=== PATIENT | male | born 1970 | race Caucasian/White ===

== ENCOUNTER 2020-04-02 22:40 | Emergency (ER) | payer OTHER ==
[~2020-04-02] VITALS: Ht 180.3 cm; Wt 86.2 kg
--- NOTE | 2020-04-02 23:43 | Emergency Department Note ---
History of Present Illnes History of Present Illness Chief Complaint: Eye, Ear, Nose, Throat, Dental History of Present Illness This is a 49 year old male PRESENTS TO ED WITH TOOTHACHE X1 DAY, PT HAS APPT AT DENTIST OFFICE ON FRIDAY . Historian: Patient Arrival Mode: Car Multi Media Specialist Required: No Onset (how long ago): day(s) (1) Location: TOOTH Quality: PAIN Radiation: Reports non-radiation Severity: moderate Onset quality: sudden Duration (how long): day(s) (1) Timing of current episode: constant Progression: unchanged Chronicity: new Context: Denies recent illness, Denies recent surgery, Denies trauma/injury Relieving factors: none Exacerbating factors: eating, other (HOT AND COLD FLUIDS) Associated symptoms: Reports denies other symptoms Treatments prior to arrival: none Past Medical/Family History Physician Review I have reviewed the patient's past medical and family history. Any updates have been documented here. Past Medical History Recent Fever: Yes Clinical Suspicion of Infectio: Yes New/Unexplained Change in Ment: No Other Medical History: PNEUMOTHORAX Other Surgery: R WRIST, LIPOMA REMOVED, L FOOT SX Social History Smoking Cessation: Never Smoker Alcohol Use: None Any Illegal Drug Use: No Other Last Tetanus: UTD Any Pre-Existing Lines (PICC,: No Review of Systems Review of Systems Constitutional: Reports no symptoms EENTM: Reports as per HPI Cardiovascular: Reports no symptoms Respiratory: Reports no symptoms Gastrointestinal: Reports no symptoms Genitourinary: Reports no symptoms Musculoskeletal: Reports no symptoms Integumentary: Reports no symptoms Neurological: Reports no symptoms Psychological: Reports no symptoms Endocrine: Reports no symptoms Hematological/Lymphatic: Reports no symptoms Physical Exam Related Data Allergies: Coded Allergies: No Known Allergies (Unverified , 08/14/14) Triage Vital Signs Vital Signs Date Time Temp Pulse Resp B/P (MAP) Pulse Ox O2 Delivery O2 Flow Rate FiO2 04/02/20 22:51 98.4 88 129/81 100 Room Air Vital signs reviewed: Yes Physical Exam CONSTITUTIONAL Constitutional: Present well-developed, Present well-nourished; Absent distressed HENT HENT: Present normocephalic, Present atraumatic, Present oropharynx clear/moist, Present nose normal, Present dental caries (LARGE DENTAL PAULETTE RIGHT LOWER INCISOR, NO SIGN OF INFECTION) HENT L/R: Present left ext ear normal, Present right ext ear normal EYES Eyes: Reports PERRL, Reports conjunctivae normal NECK Neck: Present ROM normal PULMONARY Pulmonary: Present effort normal, Present breath sounds normal CARDIOVASCULAR Cardiovascular: Present regular rhythm, Present heart sounds normal, Present capillary refill normal, Present normal rate GASTROINTESTINAL Abdominal: Present soft, Present nontender, Present bowel sounds normal GENITOURINARY Genitourinary: Present exam deferred SKIN Skin: Present warm, Present dry MUSCULOSKELETAL Musculoskeletal: Present ROM normal NEUROLOGICAL Neurological: Present alert, Present oriented x 3, Present no gross motor or sensory deficits PSYCHOLOGICAL Psychological: Present mood/affect normal, Present judgement normal Assessment & Plan Medical Decision Making MDM PT WITH DENTAL CARIES PRESCRIBED PEN VEE K 500 MG 1 PO Q 6 HOURS FOR 14 DAYS TRAMADOL 50 MG 1 PO Q 6 HOURS PRN PAIN DOLOBID 500 MG 1 PO Q 12 HOURS PRN PAIN PT TO FOLLOW UP WITH DENTIST Assessment & Plan Final Impression: (1) Pain, dental (2) Dental caries Depart Disposition: HOME, SELF-CARE Last Vital Signs Date Time Temp Pulse Resp B/P (MAP) Pulse Ox O2 Delivery O2 Flow Rate FiO2 04/02/20 22:51 98.4 88 129/81 100 Room Air JUAN HOLT MD Apr 02, 2020 23:43
--- OUTSIDE RECORDS SUMMARY | 2020-04-03 00:29 | XMS REPORT | Continuity of Care Document ---
Author Author KIERRA Ramos Organization [email or web address] Address Unknown Phone Unavailable Care Team Providers Care Emt I/85 Name Role Phone [employer] Unavailable Un available Problems Problem Status Onset Date Classification Date Reported Comments Source Discharge Diagnosis: Contusion of foot, left 06/22/2015 06/25/2015 [facility] Discharge Diagnosis: Left foot pain 06/22/2015 06/25/2015 [facility] POSS FX FOOT 2 DAYS AGO Active 06/19/2015 [facility] LEFT TOE INJURY Active 06/16/2015 [facility] Discharge Diagnosis: Acid reflux 05/24/2015 05/27/2015 [facility] CHEST PAIN Active 05/23/2015 [facility] Discharge Diagnosis: Colitis 11/24/2014 11/27/2014 [facility] ABDOMINAL PAIN Active 11/22/2014 [facility] CP Active [facility] ABDOMINAL PAIN, DIVERTICULITIS Active 11/04/2014 [facility] Gastroesophageal reflux disease (disorder) Resolved Problem 06/25/2015 [facility] Fracture of foot (disorder) Re solved Problem [facility] Spontaneous pneumothorax (disorder) Resolved Problem [facility] ABDMNAL PAIN UNSPCF SITE Active [facility] CHEST PAIN NOS Active [facility] Medications Medication Details Route Status Patient Instructions Ordering Provider Order Date Source tramadol hydrochloride 50 MG Oral Tablet 50 mg, Route: PO, Drug form: TAB, ONCE, Dosing Weight 86.364, kg, Priority: STAT, Start date: 06/22/15 5:09:00, Stop date: 06/22/15 5:09:00 Inactive 06/22/2015 [facility] tramadol hydrochloride 50 MG Oral Tablet 50 mg = 1 tab, PO, BID, X 15 day, # 10 tab, 0 Refill(s) Active 06/22/2015 [facility] Ibuprofen Notes: (Same as: Mot rin) "Do Not Crush" Give with food. Inactive 06/22/2015 [facility] Ketorolac 60 mg, Route: IM, Dr ug form: INJ, ONCE, Dosing Weight 86.364, kg, Priority: STAT, Start date: 06/16/15 20:26:00, Stop date: 06/16/15 20:26:00 Inactive 06/17/2015 [facility] Esomeprazole 40 MG Enteric Coated Capsule [Nexium] 40 mg = 1 cap, PO, Daily, # 30 cap, 0 Refill(s) Active 05/24/2015 [facility] Famotidine 20 MG Oral Tablet [Pepcid] 20 mg = 1 tab, PO, BID, # 60 tab, 0 Refill(s) Active 05/24/2015 [facility] GI cocktail Notes: [place] = antacid with simethicone 22.5 mL - lidocaine viscous 7.5 mL Inactive 05/24/2015 [facility] prochlorperazine 10 mg oral tablet 10 mg = 1 tab, PO, Q6H, PRN Nausea & Vomiting, X 3 day, # 10 tab, 0 Refill(s) Active 11/24/2014 [facility] promethazine 25 mg rectal suppository 25 mg = 1 supp, AL, Q6H, PRN Nausea & Vomiting, X 1 day, # 4 supp, 0 Refill(s) No Longer Active 11/24/2014 [facility] Metronidazole 500 MG Oral Tablet [Flagyl] 500 mg = 1 tab, PO, Q8H, X 10 day, # 30 tab, 0 Refill(s) Active 11/24/2014 [facility] Levofloxacin 500 MG Oral Tablet [Levaquin] 500 mg = 1 tab, PO, Q24H, X 9 day, # 9 tab, 0 Refill(s) Active 11/24/2014 [facility] Acetaminophen 325 MG / Hydrocodone Tripp trate 5 MG Oral Tablet [[place] 5/325] 1-2 tab, PO, Q6H, PRN Pain, X 5 day, # 2 0 tab, 0 Refill(s) Active 11/24/2014 [facility] Potassium Chloride 1.33 MEQ/ML Oral Solution 40 mEq, 15 mL, Route: PO, Drug form: LIQ, ONCE, Dosing Weight 86.364, kg, Priority: STAT, Start date: 11/24/14 2:51:00, Stop date: 11/24/14 2:51:00 Inactive 11/24/2014 [facility] Levaquin 750 mg, Route: PO, Dr ug form: TAB, ONCE, Dosing Weight 86.364, kg, Start date: 11/24/14 2:18:00, Stop date: 11/24/14 2:18:00 Inactive 11/24/2014 [facility] Flagyl 500 mg, Route: IVPB, ON CE, Dosing Weight 86.364, kg, Priority: STAT, Start date: 11/24/14 2:18:00, Stop date: 11/24/14 2:18:00 Inactive 11/24/2014 [facility] Ketorolac 30 mg, Route: IVP, D rug form: INJ, ONCE, Dosing Weight 86.364, kg, Priority: STAT, Start date: 11/24/14 2:18:00, Stop date: 11/24/14 2:18:00 Inactiv e 11/24/2014 [facility] Zofran ODT 4 mg, Route: PO, Dr ug form: TABDIS, ONCE, Dosing Weight 86.364, kg, Priority: STAT, Start date: 11/24/14 2:18:00, Stop date: 11/24/14 2:18:00 Inactiv e 11/24/2014 [facility] Saline Flush 0.9% Notes: Same as: BD Posiflush Sterile No Longer Active 11/24/2014 [facility] Nexium 20 mg, Route: PO, Drug form: ECCAP, BID, Dosing Weight 88.818, kg, Start date: 11/12/14 9:00:00, Duration: 30 day, Stop date: 12/11/14 17:00:00 No Longer Active 11/12/2014 [facility] Protonix Notes: Tablet should not be chewed or crushed. (Same as: Protonix) No Longer Active 11/12/2014 [facility] tramadol hydrochloride 50 MG Oral Tablet 50 mg = 1 tab, PO, Q6H, PRN Pain Score 1-3, X 7 day, # 28 tab, 0 Refill(s) Active 11/11/2014 [facility] Ketorolac 4 days MEDICA TION WASTE Product Size: 30 mg Product Wasted: ___ mg Inactive 11/11/2014 [facility] Tramadol Notes: Not to exceed 400mg/day. (Same As: Ultram) Inactive 11/11/2014 [facility] tramadol hydrochloride 50 MG Oral Tablet Notes: Not to exceed 400mg/day. (Same As: Ultram) Inactive 11/11/2014 [facility] Acetaminophen 325 MG / Hydrocodone Tripp trate 5 MG Oral Tablet [[place] 5/325] 1 tab, Route: PO, Dosing Weight 88.818, kg, ONCE, Start date: 11/11/14 10:55:00, Stop date: 11/11/14 10:55:00 Inactive 11/11/2014 [facility] Acetaminophen Notes: Do not ex ceed 4 gm/day. (Same as: Tylenol) Inactive 11/11/2014 [facility] Morphine Notes: (Same as:MORPh ine Sulfate) Inactive 11/11/2014 [facility] Fentanyl 50 microgram, Route: IVP, ONCE, Dosing Weight 88.818, kg, Priority: STAT, Start date: 11/11/14 6:11:00, Stop date: 11/11/14 6:11:00 Inactive 11/11/2014 [facility] Saline Flush 0.9% Notes: (Same as: BD Posiflush) Inactive 11/11/2014 [facility] Dilaudid 1 mg, Route: IVP, ONC E, Dosing Weight 88.636, kg, Priority: STAT, Start date: 11/05/14 11:41:00, Stop date: 11/05/14 11:41:00 Inactive 11/05/2014 [facility] Ciprofloxacin 2 MG/ML Injectable Solution [Cipro] Notes: Do not refrigerate No Longer Active 11/05/2014 [facility] Flagyl Notes: (Same as: Flagyl ) Avoid alcohol. No Longer Active 11/05/2014 [facility] Protonix Notes: For IV push re constitute with 10 ml 0.9% sodium chloride and push over 2 minutes. (Same as: Protonix) No Longer Active 11/05/2014 [facility] Hydromorphone 1.5 mg, 1.5 mL, Route: IV, Drug form: INJ, Q4H, Dosing Weight 88.636, kg, PRN Pain Score 7-10, Start date: 11/04/14 22:38:00, Stop date: 12/04/14 22:37:00 No Longer Active 11/05/2014 [facility] Thiamine Notes: (Same As: Beba min B1) No Longer Active 11/05/2014 [facility] Zofran Notes: (Same as: Zofran ) MEDICATION WASTE Product Size: 4 mg Product Wasted: ___ mg No Longer Active 11/05/2014 [facility] Morphine Notes: (Same as:MORPh ine Sulfate) No Longer Active 11/05/2014 [facility] D5NS 1,000 mL 1,000 mL, Rate: 100 ml/hr, Infuse over: 10 hr, Route: IV, Dosing Weight 88.636 kg, Total Volume: 1,000, Start date: 11/04/14 20:27:00, Duration: 30 day, Stop date: 12/04/14 20:26:00 No Longer Active 11/05/2014 [facility] Esomeprazole 20 MG Enteric Coated Capsule [Nexium] 20 mg = 1 cap, PO, BID, # 90 cap, 0 Refill(s) On Hold 11/05/2014 [facility] Allergies, Adverse Reactions, Alerts No Known Medication Allergies Immunizations No Data Provided for This Section Results Order Name Results Value Reference Range Date Interpretation Comments Source CARDIAC ENZYMES CK MB Index 1.2 0.0 - 2.5 05/24/2015 [facility] CARDIAC ENZYMES Troponin-I <0.02 0.00 - 0.40 05/24/2015 [facility] CARDIAC ENZYMES CK MB 1.0 0.5 - 3.6 05/24/2015 [facility] CARDIAC ENZYMES Total CK 85 12 - 191 05/24/2015 [facility] CHEM PANEL eGFR 80 05/24/2015 Result Comment: The eGFR is calculated using the CKD-EPI formula. In most young, healthy individuals the eGFR will be >90 mL/min/1.73m2. The eGFR declines with age. An eGFR of 60-89 may be normal in some populations, particularly the elderly, for whom the CKD-EPI formula has not been extensively validated. Use of the eGFR is not recommended in the following populations:

Individuals with unstable creatinine concentrations, including patients and those with serious co-morbid conditions.

Patients with extremes in muscle mass or diet.

The data above are obtained from the National Kidney Disease Education Program (NKDEP) which additionally recommends that when the eGFR is used in patients with extremes of body mass index for purposes of drug dosing, the eGFR should be multiplied by the estimated BMI. [place] CHEM PANEL AGAP 11.7 10.0 - 20.0 05/24/2015 [place] CHEM PANEL Bili Total 0.3 0.2 - 1.3 05/24/2015 [place] [facility] CHEM PANEL AST 46 0 - 37 05/24/2015 [place] CHEM PANEL A/G Ratio 0.9 0.7 - 1.6 05/24/2015 [place] [facility] CHEM PANEL Globulin 4.0 2.0 - 4.0 05/24/2015 [place] CHEM PANEL B/C Ratio 9 6 - 25 05/24/2015 [place] CHEM PANEL Alk Phos 145 39 - 136 05/24/2015 [place] CHEM PANEL ALT 93 0 - 65 05/24/2015 [place] [facility] CHEM PANEL Total Protein 7.6 6.4 - 8.4 05/24/2015 [place] CHEM PANEL Albumin Lvl 3.6 3.5 - 5.0 05/24/2015 [place] CHEM PANEL Calcium Lvl 8.7 8.5 - 10.5 05/24/2015 [place] CHEM PANEL CO2 26 24 - 32 05/24/2015 [place] CHEM PANEL Chloride Lvl 105 95 - 109 05/24/2015 [place] CHEM PANEL Creatinine Lvl 1.1 0.5 - 1.4 05/24/2015 [place] CHEM PANEL BUN 10 7 - 22 05/24/2015 [place] CHEM PANEL Sodium Lvl 138 135 - 145 05/24/2015 [place] CHEM PANEL Glucose Lvl 97 70 - 99 05/24/2015 [place] CHEM PANEL Potassium Lvl 4.7 3.5 - 5.1 05/24/2015 [place] HEMATOLOGY RBC 4.46 4.70 - 6.10 05/24/2015 [facility] HEMATOLOGY WBC 7.7 3.7 - 10.4 05/24/2015 [facility] HEMATOLOGY MCH 30.3 27.0 - 31.0 05/24/2015 [facility] HEMATOLOGY Hct 40.6 42.0 - 54.0 05/24/2015 [facility] HEMATOLOGY Hgb 13.5 14.0 - 18.0 05/24/2015 [facility] HEMATOLOGY Platelet 367 133 - 450 05/24/2015 [facility] HEMATOLOGY RDW 17.8 11.5 - 14.5 05/24/2015 [facility] HEMATOLOGY MCV 91.1 80.0 - 94.0 05/24/2015 [facility] HEMATOLOGY MCHC 33.3 32.0 - 36.0 05/24/2015 [facility] HEMATOLOGY MPV 8.4 7.4 - 10.4 05/24/2015 [facility] URINE AND STOOL UA Sq Epi None Seen 11/24/2014 [facility] URINE AND STOOL UA Urobilinogen <=1.0 mg/dL 0.1 - 1.0 11/24/2014 [facility] URINE AND STOOL UA Spec Grav >=1.050 *ABN* (11/24/14 1:50 AM) <=1.030 11/24/2014 [place] URINE AND STOOL UA Leuk Est Negative (11/24/14 1:50 AM) Negative 11/24/2014 [place] URINE AND STOOL UA Nitrite Negative (11/24/14 1:50 AM) Negative 11/24/2014 [facility] URINE AND STOOL UA Blood Negative (11/24/14 1:50 AM) Negative 11/24/2014 [facility] URINE AND STOOL UA Bili Negative *NA* (11/24/14 1:50 AM) Negative 11/24/2014 [place] URINE AND STOOL UA Ketones Negative mg/dL Negative mg/dL 11/24/2014 [facility] URINE AND STOOL UA Glucose Negative mg/dL Negative mg/dL 11/24/2014 [facility] URINE AND STOOL UA Protein 30 mg/dL Negative mg/dL 11/24/2014 [facility] URINE AND STOOL UA pH 7.0 5.0 - 8.0 11/24/2014 [place] URINE AND STOOL UA Turbidity Clear (11/24/14 1:50 AM) Clear 11/24/2014 [place] URINE AND STOOL UA Color Yellow *NA* (11/24/14 1:50 AM) Yellow 11/24/2014 [facility] CHEM PANEL Lipase Lvl 712 73 - 393 11/24/2014 [place] ELECTROLYTES AGAP 14.1 10.0 - 20.0 11/24/2014 [place] ELECTROLYTES B/C Ratio 5 6 - 25 11/24/2014 [place] ELECTROLYTES Globulin 4.4 2.0 - 4.0 11/24/2014 [facility] ELECTROLYTES A/G Ratio 0.9 0.7 - 1.6 11/24/2014 [facility] ELECTROLYTES eGFR 90 11/24/2014 <sup>1</sup>Result Comment: The eGFR is calculated using the CKD-EPI formula. In most young, healthy individuals the eGFR will be >90 mL/min/1.73m2. The eGFR declines with age. An eGFR of 60-89 may be normal in some populations, particularly the elderly, for whom the CKD-EPI formula has not been extensively validated. Use of the eGFR is not recommended in the following populations:& lt;br/>
Individuals with unstable creatinine concentrations, including patients and those with serious co-morbid conditions.

Patients with extremes in muscle mass or diet.

The data above are obtained from the National Kidney Disease Education Program (NKDEP) which additionally recommends that when the eGFR is used in patients with extremes of body mass index for purposes of drug dosing, the eGFR should be multiplied by the estimated BMI. [place] ELECTROLYTES Alk Phos 245 39 - 136 11/24/2014 [place] ELECTROLYTES AST 85 0 - 37 11/24/2014 [facility] ELECTROLYTES Bili Total 0.4 0.2 - 1.3 11/24/2014 [place] ELECTROLYTES Sodium Lvl 140 135 - 145 11/24/2014 [place] ELECTROLYTES Glucose Lvl 106 70 - 99 11/24/2014 <sup>2</sup>Interpretive Data: Adult ref erence range values reflect the clinical guidelines
of the [place] [employer]. [place] ELECTROLYTES Creatinine Lvl 1.0 0.5 - 1.4 11/24/2014 [place] ELECTROLYTES BUN 5 7 - 22 11/24/2014 [place] ELECTROLYTES Potassium Lvl 3.1 3.5 - 5.1 11/24/2014 [place] ELECTROLYTES CO2 24 24 - 32 11/24/2014 [place] ELECTROLYTES Calcium Lvl 8.8 8.5 - 10.5 11/24/2014 [place] ELECTROLYTES Total Protein 8.2 6.4 - 8.4 11/24/2014 [facility] ELECTROLYTES Albumin Lvl 3.8 3.5 - 5.0 11/24/2014 [facility] ELECTROLYTES ALT 96 0 - 65 11/24/2014 [facility] ELECTROLYTES Chloride Lvl 105 95 - 109 11/24/2014 [facility] HEMATOLOGY RDW 20.3 11.5 - 14.5 11/24/2014 [facility] HEMATOLOGY MCH 31.1 27.0 - 31.0 11/24/2014 [facility] HEMATOLOGY MCHC 32.6 32.0 - 36.0 11/24/2014 [facility] HEMATOLOGY MPV 8.4 7.4 - 10.4 11/24/2014 [facility] HEMATOLOGY Platelet 358 133 - 450 11/24/2014 [facility] HEMATOLOGY Hgb 15.4 14.0 - 18.0 11/24/2014 [facility] HEMATOLOGY RBC 4.96 4.70 - 6.10 11/24/2014 [facility] HEMATOLOGY MCV 95.4 80.0 - 94.0 11/24/2014 [facility] HEMATOLOGY Hct 47.3 42.0 - 54.0 11/24/2014 [facility] HEMATOLOGY WBC 6.9 3.7 - 10.4 11/24/2014 [facility] HEMATOLOGY Anisocyte 1+ *ABN* (11/23/14 10:40 PM) None Seen 11/24/2014 [facility] HEMATOLOGY Basophils # 0.0 0.0 - 0.2 11/24/2014 [facility] HEMATOLOGY Monocytes # 0.6 0.0 - 0.8 11/24/2014 [facility] HEMATOLOGY Segs-Bands # 4.4 1.5 - 8.1 11/24/2014 [facility] HEMATOLOGY Basophils 0.6 0.0 - 1.0 11/24/2014 [facility] HEMATOLOGY Eosinophils # 0.2 0.0 - 0.5 11/24/2014 [facility] HEMATOLOGY Monocytes 8.5 2.0 - 12.0 11/24/2014 [facility] HEMATOLOGY Lymphocytes 23.2 20.0 - 40.0 11/24/2014 [facility] HEMATOLOGY Lymphocytes # 1.6 1.0 - 5.5 11/24/2014 [facility] HEMATOLOGY Eosinophils 3.5 0.0 - 4.0 11/24/2014 [facility] HEMATOLOGY Segs 64.2 45.0 - 75.0 11/24/2014 [facility] CARDIAC ENZYMES CK MB 0.8 0.5 - 3.6 11/11/2014 [facility] CARDIAC ENZYMES Troponin-I <0.02 0.00 - 0.40 11/11/2014 [facility] CARDIAC ENZYMES Total CK 55 12 - 191 11/11/2014 [facility] LIPIDS VLDL See Note 5 *NA* (11/11/14 1:06 PM) 11/11/2014 <sup>5</sup>Result Comment: VLDL - Cholesterol level cannot be accurately calculated due to very high triglycerides (>400 mg/dL). [facility] LIPIDS LDL (Calculated) See Note mg/dL <=99 mg/dL 11/11/2014 <sup>4</sup>Result Comment: LDL choleste rol cannot be calculated due to very high triglycerides (>400 mg/dL). Recommend Direct LDL if clinically indicated. [facility] LIPIDS HDL 20 >=61 mg/dL 11/11/2014 [facility] LIPIDS Chol 162 <=199 mg/dL 11/11/2014 [facility] LIPIDS CHD Risk 8.10 4.00 - 7.30 11/11/2014 [facility] LIPIDS Trig 457 <=149 mg/dL 11/11/2014 [facility] DRUG SCREEN U Cannab Scr Nega tive *NA* (11/11/14 6:37 AM) Negative 11/11/2014 [facility] DRUG SCREEN U Cocaine Scr Nega tive *NA* (11/11/14 6:37 AM) Negative 11/11/2014 [facility] DRUG SCREEN U Benzodia Scr Nega tive *NA* (11/11/14 6:37 AM) Negative 11/11/2014 [facility] DRUG SCREEN UDS Note See Note 6 (11/11/14 6:37 AM) 11/11/2014 <sup>6</sup>Interpretive Guzman a: Drugs reported as positive have not been confirmed by a second
method and should be used for medical purposes only. To order
confirmation, contact laboratory.

note: Below are cut-off concentrations for all urine drugs of
abuse performed in the laboratory. Some drugs listed in the table
may not be included in this panel.

Description Cut-off concentration

Ampheta mine 1000 ng/mL
Barbiturates 200 ng/mL
Benzodiazepines 300 ng/mL
Cocaine metabolites 300 ng/mL
Opiates 300 ng/mL
Phencyclidine 25 ng/mL
Propoxyphene 300 ng/mL
Marijuana metabolites 50 ng/mL
Methadone 300 ng/mL
Urine alcohol 20 mg/dL [facility] DRUG SCREEN U Amph Scr Nega tive *NA* (11/11/14 6:37 AM) Negative 11/11/2014 [facility] DRUG SCREEN U Phencyc Scr Nega tive *NA* (11/11/14 6:37 AM) Negative 11/11/2014 [facility] DRUG SCREEN U Opiate Scr Posi tive *ABN* (11/11/14 6:37 AM) Negative 11/11/2014 [facility] DRUG SCREEN U Edelmira Scr Nega tive *NA* (11/11/14 6:37 AM) Negative 11/11/2014 [facility] URINE AND STOOL UA Bacteria None Seen (11/11/14 6:37 AM) None Seen 11/11/2014 [facility] URINE AND STOOL UA Mucus Many /LPF None Seen /LPF 11/11/2014 [facility] URINE AND STOOL UA WBC None Seen (11/11/14 6:37 AM) None Seen 11/11/2014 [facility] URINE AND STOOL UA RBC None Seen (11/11/14 6:37 AM) 0 - 2 11/11/2014 [facility] URINE AND STOOL UA Sq Epi Rare /LPF Few /LPF 11/11/2014 [facility] URINE AND STOOL UA Leuk Est Negative (11/11/14 6:37 AM) Negative 11/11/2014 [facility] URINE AND STOOL UA Nitrite Negative (11/11/14 6:37 AM) Negative 11/11/2014 [facility] URINE AND STOOL UA Bili Negative *NA* (11/11/14 6:37 AM) Negative 11/11/2014 [facility] URINE AND STOOL UA Blood Negative (11/11/14 6:37 AM) Negative 11/11/2014 [facility] URINE AND STOOL UA Urobilinogen 0.2 0.1 - 1.0 11/11/2014 [facility] URINE AND STOOL UA Turbidity Clear (11/11/14 6:37 AM) Clear 11/11/2014 [facility] URINE AND STOOL UA Color Yellow *NA* (11/11/14 6:37 AM) Yellow 11/11/2014 [facility] URINE AND STOOL UA Spec Grav 1.020 <=1.030 11/11/2014 [facility] URINE AND STOOL UA pH 6.0 5.0 - 8.0 11/11/2014 [facility] URINE AND STOOL UA Protein Negative mg/dL Negative mg/dL 11/11/2014 [facility] URINE AND STOOL UA Glucose Negative mg/dL Negative mg/dL 11/11/2014 [facility] URINE AND STOOL UA Ketones Negative mg/dL Negative mg/dL 11/11/2014 [facility] CARDIAC ENZYMES CK MB Index 0.7 0.0 - 2.5 11/11/2014 [facility] CARDIAC ENZYMES Troponin-I <0.02 0.00 - 0.40 11/11/2014 [facility] CARDIAC ENZYMES BNP 27 <=100 pg/mL 11/11/2014 <sup>3</sup>Interpretive Data: Elevated results are in line with increasing severity of
congestive heart failure. Minor elevations between 100 and 300
may be seen with Myocardial Ischemia, Sodium retaining drugs,
and compensated/treated heart failure. [facility] CARDIAC ENZYMES Total CK 68 12 - 191 11/11/2014 [facility] CARDIAC ENZYMES CK MB 0.5 0.5 - 3.6 11/11/2014 [facility] CHEM PANEL Magnesium Lvl 2.0 1.8 - 2.4 11/11/2014 [facility] CHEM PANEL Lipase Lvl 268 73 - 393 11/11/2014 [facility] ELECTROLYTES CO2 21 24 - 32 11/11/2014 [facility] ELECTROLYTES Chloride Lvl 113 95 - 109 11/11/2014 [facility] ELECTROLYTES Potassium Lvl 3.9 3.5 - 5.1 11/11/2014 [facility] ELECTROLYTES AST 227 0 - 37 11/11/2014 [facility] ELECTROLYTES Alk Phos 239 39 - 136 11/11/2014 [facility] ELECTROLYTES AGAP 13.9 10.0 - 20.0 11/11/2014 [facility] ELECTROLYTES Bili Total 0.4 0.2 - 1.3 11/11/2014 [facility] ELECTROLYTES Calcium Lvl 7.6 8.5 - 10.5 11/11/2014 [facility] ELECTROLYTES Total Protein 6.7 6.4 - 8.4 11/11/2014 [facility] ELECTROLYTES Albumin Lvl 3.2 3.5 - 5.0 11/11/2014 [facility] ELECTROLYTES ALT 137 0 - 65 11/11/2014 [facility] ELECTROLYTES eGFR 103 11/11/2014 <sup>1</sup>Result Comment: The eGFR is calculated using the CKD-EPI formula. In most young, healthy individuals the eGFR will be >90 mL/min/1.73m2. The eGFR declines with age. An eGFR of 60-89 may be normal in some populations, particularly the elderly, for whom the CKD-EPI formula has not been extensively validated. Use of the eGFR is not recommended in the following populations:& lt;br/>
Individuals with unstable creatinine concentrations, including patients and those with serious co-morbid conditions.

Patients with extremes in muscle mass or diet.

The data above are obtained from the National Kidney Disease Education Program (NKDEP) which additionally recommends that when the eGFR is used in patients with extremes of body mass index for purposes of drug dosing, the eGFR should be multiplied by the estimated BMI. [facility] ELECTROLYTES A/G Ratio 0.9 0.7 - 1.6 11/11/2014 [facility] ELECTROLYTES Globulin 3.5 2.0 - 4.0 11/11/2014 [facility] ELECTROLYTES B/C Ratio 3 6 - 25 11/11/2014 [facility] ELECTROLYTES Creatinine Lvl 0.9 0.5 - 1.4 11/11/2014 [facility] ELECTROLYTES BUN 3 7 - 22 11/11/2014 [facility] ELECTROLYTES Glucose Lvl 106 70 - 99 11/11/2014 <sup>2</sup>Interpretive Data: Adult ref erence range values reflect the clinical guidelines
of the [place] [employer]. [facility] ELECTROLYTES Sodium Lvl 144 135 - 145 11/11/2014 [facility] HEMATOLOGY Monocytes 11.2 2.0 - 12.0 11/11/2014 [facility] HEMATOLOGY Segs 54.5 45.0 - 75.0 11/11/2014 [facility] HEMATOLOGY Lymphocytes 28.3 20.0 - 40.0 11/11/2014 [facility] HEMATOLOGY Lymphocytes # 1.4 1.0 - 5.5 11/11/2014 [facility] HEMATOLOGY Monocytes # 0.6 0.0 - 0.8 11/11/2014 [facility] HEMATOLOGY Eosinophils # 0.3 0.0 - 0.5 11/11/2014 [facility] HEMATOLOGY Basophils # 0.1 0.0 - 0.2 11/11/2014 [facility] HEMATOLOGY Eosinophils 5.0 0.0 - 4.0 11/11/2014 [facility] HEMATOLOGY Basophils 1.0 0.0 - 1.0 11/11/2014 [facility] HEMATOLOGY Segs-Bands # 2.7 1.5 - 8.1 11/11/2014 [facility] HEMATOLOGY PTT 26.9 22.9 - 35.8 11/11/2014 <sup>10</sup>Interpretive Data: Heparin Therapeutic Range: 57 - 92 Seconds [facility] PT 13.3 12.0 - 14.7 11/11/2014 [facility] INR 1.01 0.85 - 1.17 11/11/2014 <sup>9</sup>Interpretive Data: RECOMMEND ED RANGES FOR PROTIME INR:
2.0-3.0 for most medical and surgical thromboembolic states.
2.5-3.5 for artificial heart valves and recurrent embolism.

INR SHOULD BE USED ONLY FOR PATIENTS ON STABLE ANTICOAGULANT THERAPY. [facility] MPV 8.5 7.4 - 10.4 11/11/2014 [facility] Hct 41.7 42.0 - 54.0 11/11/2014 [facility] HEMATOLOGY MCV 96.5 80.0 - 94.0 11/11/2014 [facility] HEMATOLOGY WBC 5.0 3.7 - 10.4 11/11/2014 [facility] MCHC 33.1 32.0 - 36.0 11/11/2014 [facility] HEMATOLOGY RDW 20.1 11.5 - 14.5 11/11/2014 [facility] Platelet 443 133 - 450 11/11/2014 [facility] MCH 32.0 27.0 - 31.0 11/11/2014 [facility] HEMATOLOGY RBC 4.32 4.70 - 6.10 11/11/2014 [facility] HEMATOLOGY Hgb 13.8 14.0 - 18.0 11/11/2014 [facility] TOXICOLOGY Etoh (%) 0.181 11/11/2014 <sup>7</sup>Interpretive Data: Ethanol testing results should be used for medical purposes only.
Negative Range: <0.003%
Toxic Range: >0.25% [facility] TOXICOLOGY Ethanol Lvl 181 11/11/2014 <sup>8</sup>Interpretive Data: Negative Range: <3 mg/dL
Toxic Range: >250 mg/dL [facility] CHEM PANEL Bili Total 0.6 0.2 - 1.3 11/06/2014 [facility] CHEM PANEL Globulin 3.4 2.0 - 4.0 11/06/2014 [facility] CHEM PANEL Bili Direct 0.2 0.0 - 0.3 11/06/2014 [facility] CHEM PANEL Bili Indirect 0.4 0.0 - 1.0 11/06/2014 [facility] CHEM PANEL A/G Ratio 0.9 0.7 - 1.6 11/06/2014 [facility] CHEM PANEL ALT 111 0 - 65 11/06/2014 [facility] CHEM PANEL AST 128 0 - 37 11/06/2014 [facility] CHEM PANEL Alk Phos 200 39 - 136 11/06/2014 [facility] CHEM PANEL Total Protein 6.4 6.4 - 8.4 11/06/2014 [facility] CHEM PANEL Albumin Lvl 3.0 3.5 - 5.0 11/06/2014 [facility] JARED Negat melisa (11/06/14 6:58 AM) Negative 11/06/2014 [facility] Hep Bs Ag Negat melisa *NA* (11/06/14 6:58 AM) Negative 11/06/2014 [facility] IMMUNOLOGY Hep B Core IgM Negat melisa *NA* (11/06/14 6:58 AM) Negative 11/06/2014 [facility] Hep C Ab Negat melisa *NA* (11/06/14 6:58 AM) 11/06/2014 [facility] Hep A IgM Negat melisa *NA* (11/06/14 6:58 AM) Negative 11/06/2014 [facility] CHEM PANEL eGFR 103 11/05/2014 <sup>1</sup>Result Comment: The eGFR is calculated using the CKD-EPI formula. In most young, healthy individuals the eGFR will be >90 mL/min/1.73m2. The eGFR declines with age. An eGFR of 60-89 may be normal in some populations, particularly the elderly, for whom the CKD-EPI formula has not been extensively validated. Use of the eGFR is not recommended in the following populations:& lt;br/>
Individuals with unstable creatinine concentrations, including patients and those with serious co-morbid conditions.

Patients with extremes in muscle mass or diet.

The data above are obtained from the National Kidney Disease Education Program (NKDEP) which additionally recommends that when the eGFR is used in patients with extremes of body mass index for purposes of drug dosing, the eGFR should be multiplied by the estimated BMI. [facility] CHEM PANEL Bili Total 0.6 0.2 - 1.3 11/05/2014 [facility] CHEM PANEL Alk Phos 194 39 - 136 11/05/2014 [facility] CHEM PANEL ALT 124 0 - 65 11/05/2014 [facility] CHEM PANEL Albumin Lvl 2.7 3.5 - 5.0 11/05/2014 [facility] CHEM PANEL AST 152 0 - 37 11/05/2014 [facility] CHEM PANEL CO2 25 24 - 32 11/05/2014 [facility] CHEM PANEL Total Protein 6.1 6.4 - 8.4 11/05/2014 [facility] CHEM PANEL Calcium Lvl 7.8 8.5 - 10.5 11/05/2014 [facility] CHEM PANEL Creatinine Lvl 0.9 0.5 - 1.4 11/05/2014 [facility] CHEM PANEL BUN 6 7 - 22 11/05/2014 [facility] CHEM PANEL Glucose Lvl 90 70 - 99 11/05/2014 <sup>2</sup>Interpretive Data: Adult ref erence range values reflect the clinical guidelines
of the [employer]. [facility] CHEM PANEL Sodium Lvl 140 135 - 145 11/05/2014 [facility] CHEM PANEL Chloride Lvl 108 95 - 109 11/05/2014 [facility] CHEM PANEL Potassium Lvl 3.5 3.5 - 5.1 11/05/2014 [facility] CHEM PANEL Globulin 3.4 2.0 - 4.0 11/05/2014 [facility] CHEM PANEL B/C Ratio 7 6 - 25 11/05/2014 [facility] CHEM PANEL AGAP 10.5 10.0 - 20.0 11/05/2014 [facility] CHEM PANEL A/G Ratio 0.8 0.7 - 1.6 11/05/2014 [facility] CHEM PANEL Magnesium Lvl 2.0 1.8 - 2.4 11/05/2014 [facility] HEMATOLOGY Eosinophils # 0.1 0.0 - 0.5 11/05/2014 [facility] HEMATOLOGY Basophils # 0.1 0.0 - 0.2 11/05/2014 [facility] HEMATOLOGY Lymphocytes # 1.7 1.0 - 5.5 11/05/2014 [facility] HEMATOLOGY Monocytes # 0.8 0.0 - 0.8 11/05/2014 [facility] HEMATOLOGY Segs-Bands # 4.8 1.5 - 8.1 11/05/2014 [facility] Eosinophils 1.4 0.0 - 4.0 11/05/2014 [facility] Basophils 0.7 0.0 - 1.0 11/05/2014 [facility] Lymphocytes 23.0 20.0 - 40.0 11/05/2014 [facility] Monocytes 11.0 2.0 - 12.0 11/05/2014 [facility] Segs 63.9 45.0 - 75.0 11/05/2014 [facility] PT 13.1 12.0 - 14.7 11/05/2014 [facility] INR 0.99 0.85 - 1.17 11/05/2014 <sup>3</sup>Interpretive Data: RECOMMEND ED RANGES FOR PROTIME INR:
2.0-3.0 for most medical and surgical thromboembolic states.
2.5-3.5 for artificial heart valves and recurrent embolism.

INR SHOULD BE USED ONLY FOR PATIENTS ON STABLE ANTICOAGULANT THERAPY. [facility] MCV 98.6 80.0 - 94.0 11/05/2014 [facility] MCH 32.4 27.0 - 31.0 11/05/2014 [facility] Hgb 12.4 14.0 - 18.0 11/05/2014 [facility] Hct 37.9 42.0 - 54.0 11/05/2014 [facility] RBC 3.84 4.70 - 6.10 11/05/2014 [facility] WBC 7.5 3.7 - 10.4 11/05/2014 [facility] Platelet 296 133 - 450 11/05/2014 [facility] MPV 9.2 7.4 - 10.4 11/05/2014 [facility] HEMATOLOGY MCHC 32.9 32.0 - 36.0 11/05/2014 [facility] HEMATOLOGY RDW 19.9 11.5 - 14.5 11/05/2014 [facility] Pathology Reports No Data Provided for This Section Diagnostic Reports Report Value Date Source Foot 2 views DX NAME: KIERRA MOLINA : 1970 SEX: M Ordering Physician: Marcus Merino Left Foot AP lateral : Jun 22, 2015 04:49:00 AM. CLINICAL INDICATION: Left foot pain status post injury with bruising of the second and third digits. Comparison Examination: None. FINDINGS: 2 views of the foot are submitted for in terpretation. There is normal alignment without acute fractures or dislocations. The transcortical screw is visualized extending from the medial cuneiform at the base of the second metatarsal, presumably from repair of prior Lisfranc injury. Hardware appears intact without radiographically apparent hardware competition. Spacing between the first and second digits is normal. Particular attention is paid to the second and third toes which demonstrates no acute injury. A small plantar calcaneal bone spur is present. The visualized joint spaces are preserved. There is no soft tissue swelling. No subcutaneous gas or radiopaque foreign material is seen. If there is further concern, recommend follow-up radiographs or MRI for complete assessment. OPINION: 1. No acute fractures or dislocation of the left foot. SL: 24 06/22/2015 [facility] Chest 1view DX Name: KIERRA MOLINA : 1970 SEX: M Ordering Physician: Zach Parsons Chest 1view : May 23, 2015 10:25:00 PM. CLINICAL INDICATION: Chest pain Comparison Examination: November 11, 2014 The lungs are adequately expanded. There is no evidence for alveolar consolidation, pleural effusion, pulmonary edema or pneumothorax. The cardiomediastinal silhouette is within normal limits. Visualized bones are within normal limits for age. Soft tissues are unremarkable. IMPRESSION: No acute cardiopulmonary disease. SL: 24 05/23/2015 [facility] ED Abdomen/Pelvis IV contrast only CT Name: KIERRA MOLINA : 1970 Ordering Physician: Russel Ellison ED Abdomen/Pelvis IV contrast only CT : Nov 23, 2014 10:51:00 PM. CLINICAL INDICATION: Abdominal pain, acute Comparison Examination: February 20, 2011. TECHNIQUE: Sequential trans-axial images were obtained with a multi-detector helical CT after intravenous administration of 100 cc of Omnipaque iodinated contrast. GI contrast was not administered. Coronal and sagittal reconstructions were performed and provided as separate series. Total DLP = 685.0 mGy/cm FINDINGS: CT ABDOMEN WITH CONTRAST: The visualized lung bases are clear and there are no effusions. The heart is normal in size with a trace pericardial effusion. A small hiatal hernia is noted. The liver, spleen, pancreas, kidneys, and adrenals appear within normal limits. The liver is diffusely hypodense consistent with fatty infiltration. The patient is status post cholecystectomy. There is no free intraperitoneal air or fluid. There are no distended loops of small bowel. No mesenteric adenopathy is appreciated. CT PELVIS WITH CONTRAST: Evaluation of the colon is limited due to lack of oral contrast. There is thickening of the distal descending and sigmoid colonic wall. Mild surrounding fat stranding is noted in the distal descending colon. These findings could be consistent with colitis. Clinical correlation is recommended. The rectum, sigmoid, and urinary bladder are otherwise unremarkable. There is no free pelvic fluid or pelvic lymphadenopathy. The prostate is unremarkable. The appendix is not visualized. No acute bony abnormality is noted. IMPRESSION: 1. Wall thickening with inflammatory blanca nges in the distal descending and sigmoid colon is consistent with colitis. Clinical correlation is recommended. 2. Diffuse fatty infiltration of the bhaskar er. SL: 24 11/23/2014 [facility] Chest Pulmonary Embolism CTA NAME: KIERRA MOLINA : 1970 SEX: M Ordering Physician: Neri Camejo Chest CTA pulm emb : Nov 11, 2014 06:12:00 AM. CLINICAL INDICATION: Chest pain / See Clinic Indication Comparison Examination: 11/25/2007. TECHNIQUE: Sequential trans-axial images were obtained with a multi-detector helical CT after intravenous administration of 100 cc of Omnipaque iodinated contrast. Coronal and sagittal 3-D reconstructions were obtained per angiogram protocol. Total DLP = 481.62 mGy/cm FINDINGS: No filling defects are seen in the main, right, left or segmental pulmonary arteries to suggest a pulmonary embolus. Thoracic aorta and proximal great vessels are unremarkable. Heart size is within normal limits. No pericardial effusion. No mediastinal, hilar or axillary lymphadenopathy. Mild biapical emphysematous change as on the prior study. Lungs are otherwise clear. No confluent infiltrate or mass. No pleural effusion or pneumothorax. Hepatic steatosis is noted. Small hiatal hernia. The visualized upper abdomen is otherwise unremarkable. No acute osseous abnormality. IMPRESSION: 1. No CTA evidence for acute pulmonary e mbolism. SL: 24 11/11/2014 [facility] Chest 1view DX NAME: KIERRA MOLINA : 1970 SEX: M Ordering Physician: Neri Camejo 1view : Nov 11, 2014 06:49:00 AM. CLINICAL INDICATION: Chest pain. Comparison Examination: . FINDINGS: Single AP view of the chest is submitted for interpretation. The lungs are clear. Pulmonary vasculature is within normal limits. There is no visible pleural effusion or pneumothorax. Cardiac and mediastinal contours are within normal limits. Bony structures demonstrate no acute process. 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 IMPRESSION: 1. No radiographic evidence of acute ca rdiopulmonary process. SL: 11/11/2014 [facility] Consultation Notes No Data Provided for This Section Discharge Summaries No Data Provided for This Section History and Physicals No Data Provided for This Section Vital Signs Vital Sign Value Date Comments Source Systolic (mm Hg) 132 06/22/2015 [facility] Diastolic (mm Hg) 86 06/22/2015 [facility] Respitory Rate 20 06/22/2015 [facility] Heart Rate 94 06/22/2015 [facility] Systolic (mm Hg) 124 06/22/2015 [facility] Diastolic (mm Hg) 73 06/22/2015 [facility] Heart Rate 75 06/22/2015 [facility] Respitory Rate 20 06/22/2015 [facility] Height 180.34 cm 06/22/2015 [facility] Weight 86.364 06/22/2015 [facility] BMI Calculated 26.56 06/22/2015 [facility] Systolic (mm Hg) 120 06/22/2015 [facility] Diastolic (mm Hg) 83 06/22/2015 [facility] Respitory Rate 20 06/22/2015 [facility] Heart Rate 87 06/22/2015 [facility] Temperature Oral (F) 98.6 F 06/22/2015 [facility] Weight 86.364 06/17/2015 [facility] BMI Calculated 26.56 06/17/2015 [facility] Height 180.34 cm 06/17/2015 [facility] Heart Rate 79 06/17/2015 [facility] Respitory Rate 19 06/17/2015 [facility] Systolic (mm Hg) 127 06/17/2015 [facility] Diastolic (mm Hg) 74 06/17/2015 [facility] Temperature Oral (F) 98.2 F 06/17/2015 [facility] Systolic (mm Hg) 127 05/24/2015 [place] Diastolic (mm Hg) 74 05/24/2015 [place] Respitory Rate 20 05/24/2015 [place] Respitory Rate 18 05/24/2015 [place] Systolic (mm Hg) 104 05/24/2015 [place] Diastolic (mm Hg) 75 05/24/2015 [place] Respitory Rate 18 05/24/2015 [place] Heart Rate 103 05/24/2015 [place] Systolic (mm Hg) 118 05/24/2015 [place] Diastolic (mm Hg) 72 05/24/2015 [place] BMI Calculated 27.25 05/23/2015 [place] Weight 88.636 05/23/2015 [place] Heart Rate 105 05/23/2015 [place] Height 180.34 cm 05/23/2015 [place] Systolic (mm Hg) 118 11/24/2014 [place] Diastolic (mm Hg) 72 11/24/2014 [place] Respitory Rate 28 11/24/2014 [place] Systolic (mm Hg) 133 11/24/2014 [place] Diastolic (mm Hg) 91 11/24/2014 [place] Respitory Rate 17 11/24/2014 [place] Heart Rate 91 11/24/2014 [place] Systolic (mm Hg) 131 11/24/2014 [place] Diastolic (mm Hg) 87 11/24/2014 [place] Respitory Rate 18 11/24/2014 [place] Temperature Oral (F) 97.1 F 11/24/2014 [place] Weight 86.364 11/24/2014 [place] BMI Calculated 26.56 11/24/2014 [place] Height 180.34 cm 11/24/2014 [place] Heart Rate 124 11/24/2014 [place] Systolic (mm Hg) 133 11/11/2014 [facility] Diastolic (mm Hg) 83 11/11/2014 [facility] Heart Rate 80 11/11/2014 [facility] Respitory Rate 20 11/11/2014 [facility] Temperature Oral (F) 98.8 F 11/11/2014 [facility] Heart Rate 97 11/11/2014 [facility] Systolic (mm Hg) 134 11/11/2014 [facility] Diastolic (mm Hg) 84 11/11/2014 [facility] Temperature Oral (F) 98.6 F 11/11/2014 [facility] Respitory Rate 20 11/11/2014 [facility] Height 180.34 cm 11/11/2014 [facility] Respitory Rate 20 11/11/2014 [facility] Systolic (mm Hg) 139 11/11/2014 [facility] Diastolic (mm Hg) 71 11/11/2014 [facility] Heart Rate 100 11/11/2014 [facility] Temperature Oral (F) 98.0 F 11/11/2014 [facility] Weight 88.818 11/11/2014 [facility] BMI Calculated 27.31 11/11/2014 [facility] Height 180.34 cm 11/11/2014 [facility] Systolic (mm Hg) 154 11/06/2014 [facility] Diastolic (mm Hg) 67 11/06/2014 [facility] Heart Rate 77 11/06/2014 [facility] Respitory Rate 20 11/06/2014 [facility] Temperature Oral (F) 98.6 F 11/06/2014 [facility] Heart Rate 84 11/06/2014 [facility] Respitory Rate 16 11/06/2014 [facility] Systolic (mm Hg) 124 11/06/2014 [facility] Diastolic (mm Hg) 78 11/06/2014 [facility] Temperature Oral (F) 98.1 F 11/06/2014 [facility] Respitory Rate 16 11/06/2014 [facility] Systolic (mm Hg) 147 11/06/2014 [facility] Diastolic (mm Hg) 91 11/06/2014 [facility] Heart Rate 69 11/06/2014 [facility] Temperature Oral (F) 98.5 F 11/06/2014 [facility] BMI Calculated 27.25 11/05/2014 [facility] Weight 88.636 11/05/2014 [facility] Height 180.34 cm 11/05/2014 [facility] Encounters Location Location Details Encounter Type Encounter Number Reason For Visit Attending Provider ADM Date DC Date Status Source [facility] Inpatient [id number] Jose Bartholomew 11/05/2014 11/06/2014 [facility] OBS Observation Patient [id number] Mercedez Enrique 11/11/2014 11/12/2014 [facility] [id number] Cristiana Bhardwaj 11/24/2014 11/24/2014 [facility] [id number] Zach Parsons 05/23/2015 05/24/2015 [facility] [id number] Shaquille Lyons Jr 06/17/2015 06/17/2015 [facility] [id number] Trell Ortez 06/22/2015 06/22/2015 [facility] Procedures Procedure Code Date Perfomer Comments Source Cholecystectomy [id number] [facility], [place] Drainage of pleural cavity via chest tube [id number] [facility] ORIF - Open reduction and internal fixat ion of fracture<sup>1</sup> [id number] left foot [facility] [place] Wrist repair [id number] [facility] Assessment and Plan Assessment and Plan Date Source Extracted from:Title: General Admission H&P * Author: Mercedez Enrique MD Date: 11/11/14 Impression and Plan Chest pain, r/o ACS Admit to telemetry Trend cardiac enzymes Eventhough chest pain appears pleuritic, CTA negative Check FLP Check ECHO Pain control Cardiology consult DVT PPX Pateint is a full code and his own decision maker. 11/12/2014 [facility] Plan of Care No Data Provided for This Section Social History Social History Date Source Social History TypeResponse Alcohol Current Smoking Status Current every day smoker; Type: Cigarettes; Started at age: 17.0; Ready to change: No; Exposed at work; Cigarette Smoking Last 365 Days Yes; Reg Smoking Cessation Counseling No1 1smokes a pack per day 015 [facility] Social History TypeResponse Alcohol Current Smoking Status Current every day smoker; Type: Cigarettes; Started at age: 17.0; Ready to change: No; Exposed at work; Cigarette Smoking Last 365 Days Yes; Reg Smoking Cessation Counseling No1 1smokes a pack per day 015 [facility] Social History TypeResponse Smoking Status Current every day smoker; Type: Cigarettes; Started at age: 17.0; Ready to change: No; Exposed at work; Cigarette Smoking Last 365 Days Yes; Reg Smoking Cessation Counseling No1 1smokes a pack per day 015 [facility] Family History No Data Provided for This Section Advance Directives No Data Provided for This Section Functional Status No Data Provided for This Section
--- OUTSIDE RECORDS SUMMARY | 2020-04-03 00:30 | XMS REPORT | Continuity of Care Document ---
Author Author [facility] t Organization [facility] Address [address] [place] [address] Phone Unavailable Care Team Providers Care Analysis Intern Name Role Phone Jadon Ortez Attphys Mike Begum Attphys Darinel Parsons Attphys Rossy Bhardwaj Attphys Karly Enrique Attphys Bartholomew, Christal Garcia Attphys Bartholomew, Christal Garcia Admphys Payers Payer Name Policy Type Policy Number Effective Date Expiration Date S ource Problems Condition Name Condition Details Condition Category Status Onset Date Resolution Date Last Treatment Date Treating Clinician Comments Source POSS FX FOOT 2 DAYS AGO POSS FX FOOT 2 DAYS AGO Active 06/19/2015 [facility] Diagnosis Active 2015-06-19 10:00:00 2015-06-28 22:12:00 Lucia Simpson LEFT TOE INJURY LEFT TOE INJURY Active 06/16/2015 [facility] Diagnosis Active 2015-06-16 05:00:00 2015-06-16 21:26:00 Lucia Simpson CHEST PAIN CHES T PAIN Active 05/23/2015 [facility] Diagnosis Active 2015-05-23 00:00:00 2015-05-23 16:59:00 Lucia Simpson ABDOMINAL PAIN ABDO DASHA PAIN Active 11/22/2014 [facility] Diagnosis Active 2014-11-22 00:00:00 2014-11-23 23:26:00 [facility] CP CP Active 11/11/2014 [facility] Diagnosis Active 2014-11-11 00:00:00 2014-11-16 15:35:00 [facility] ABDOMINAL PAIN, DIVERTICULITIS ABDOMINAL PAIN, DIVERTICULITIS Active 11/04/2014 [facility] Diagnosis Active 2014-11-04 19:03:00 2014-11-10 21:51:00 [facility] Gastroesophageal reflux disease (disorder) Gastroesophageal reflux disease (disorder) Resolved Problem 06/25/2015 [facility] Problem Resolved 2015-06-25 01:50:21 [facility] Fracture of foot (disorder) Fr acture of foot (disorder) Resolved Problem 06/25/2015 [facility] Problem Resolved 2015-06-25 01:50:21 [facility] Spontaneous pneumothorax (disorder) Spontaneous pneumothorax (disorder) Resolved Problem 06/25/2015 [facility] Problem Resolved 2015-06-25 01:50:21 [facility] ABDMNAL PAIN UNSPCF SITE ABDM NAL PAIN UNSPCF SITE Active [facility] Diagnosis Active 2014-11-10 21:51:00 [facility] CHEST PAIN NOS CHES T PAIN NOS Active [facility] Diagnosis Active 2014-11-16 15:35:00 [facility] Discharge Diagnosis: Contusion of foot, left Discharge Diagnosis: Contusion of foot, left 06/22/2015 06/25/2015 [facility] Problem 2015-06-22 06:00:00 2015-06-25 01:50:21 2015-06-25 01:50:21 [facility] Discharge Diagnosis: Left foot pain Discharge Diagnosis: Left foot pain 06/22/2015 06/25/2015 [facility] Problem 2015-06-22 06:00:00 2015-06-25 01:50:21 2015-06-25 01:50:21 [facility] Discharge Diagnosis: Acid reflux Discharge Diagnosis: Acid reflux 05/24/2015 05/27/2015 [facility] Problem 2015-05-24 05:00:00 2015-05-27 02:59:53 2015-05-27 02:59:53 [facility] Discharge Diagnosis: Colitis D ischarge Diagnosis: Colitis 11/24/2014 11/27/2014 [facility] Problem 20 09-11-29 05:00:00 2014-11-27 04:00:22 2014-11-27 04:00:22 [facility] Allergies, Adverse Reactions, Alerts Allergy Name Allergy Type Status Severity Reaction(s) Onset Date Inacti ve Date Treating Clinician Comments Source No Known Allergies DA Active U 2012-01-07 00:00:00 [facility] Social History Social Habit Start Date Stop Date Quantity Comments Source Social History 2014-11-11 15:17:03 2014-11-11 15:17:03 [facility] Smoking Status Start Date Stop Date Source Social History 2014-11-05 00:48:22 [facility] Her frazier Medications Ordered Medication Name Filled Medication Name Start Date Stop Da te Current Medication? Ordering Clinician Indication Dosage Frequency Signature (SIG) Comments Components Source tramadol hydrochloride 50 MG Oral Tablet 2015-06-22 11:09:00 No 50 mg, Route: PO, Drug form: TAB, ONCE, Dosing Weight 86.364, kg, Priority: STAT, Start date: 06/22/15 5:09:00, Stop date: 06/22/15 5:09:00 [facility] tramadol hydrochloride 50 MG Oral Tablet 2015-06-22 11:07:00 Yes 50 mg = 1 tab, PO, BID, X 15 day, # 10 tab, 0 Refill(s) [facility] Ibuprofen 2015-06-22 09:46:00 No Notes: (Same as: Patricia) "Do Not Crush" Give with food. [facility] Ketorolac 2015-06-17 02:26:00 No 60 mg, Route: IM, Drug form: INJ, ONCE, Dosing Weight 86.364, kg, Priority: STAT, Start date: 06/16/15 20:26:00, Stop date: 06/16/15 20:26:00 [facility] sofiya Esomeprazole 40 MG Enteric Coated Capsule [Nexium] 2015-04 05:47:00 Yes 40 mg = 1 cap, PO, Daily, # 30 cap, 0 Re fill(s) [facility] Famotidine 20 MG Oral Tablet [Pepcid] 2015-05-24 05:47:00 Y es 20 mg = 1 tab, PO, BID, # 60 tab, 0 Refill(s) [facility] GI cocktail 2015-05-24 04:22:00 No Notes: G.I. Cocktail = antacid with simethicone 22.5 mL - lidocaine viscous 7.5 mL [facility] prochlorperazine 10 mg oral tablet 2014-11-24 08:01:00 Yes 10 mg = 1 tab, PO, Q6H, PRN Nausea & Vomiting, X 3 day, # 10 tab, 0 Refill(s) [facility] promethazine 25 mg rectal suppository 2014-11-24 08:00:00 N o 25 mg = 1 supp, NC, Q6H, PRN Nausea & Vomiting, X 1 day, # 4 supp, 0 Refill(s) [facility] Metronidazole 500 MG Oral Tablet [Flagyl] 2014-11-24 07:59:00 Yes 500 mg = 1 tab, PO, Q8H, X 10 day, # 30 tab, 0 Refill(s) [facility] Levofloxacin 500 MG Oral Tablet [Levaquin] 2014-11-24 07:59:00 Yes 500 mg = 1 tab, PO, Q24H, X 9 day, # 9 tab, 0 Refill(s) [facility] Acetaminophen 325 MG / Hydrocodone Bitartrate 5 MG Oral Tabl et [Clarence 5/325] 2014-11-24 07:59:00 Yes 1-2 tab, PO, Q6H, PRN Pain, X 5 day, # 20 tab, 0 Refill(s) [facility] Potassium Chloride 1.33 MEQ/ML Oral Solution 2014-11-24 07:51:00 No 40 mEq, 15 mL, Route: PO, Drug form: LIQ, ONCE, Dosing Weight 86.364, kg, Priority: STAT, Start date: 11/24/14 2:51:00, Stop date: 11/24/14 2:51:00 [facility] Levaquin 2014-11-24 07:18:00 No 750 mg, Route: PO, Drug form: TAB, ONCE, Dosing Weight 86.364, kg, Start date: 11/24/14 2:18:00, Stop date: 11/24/14 2:18:00 Lucia Simpson Flagyl 2014-11-24 07:18:00 No 500 mg, Route: IVPB, ONCE, Dosing Weight 86.364, kg, Priority: STAT, Start date: 11/24/14 2:18:00, Stop date: 11/24/14 2:18:00 [facility] Ketorolac 2014-11-24 07:18:00 No 30 mg, Route: IVP, Drug form: INJ, ONCE, Dosing Weight 86.364, kg, Priority: STAT, Start date: 11/24/14 2:18:00, Stop date: 11/24/14 2:18:00 [facility] Her freddie Valladares ODT 2014-11-24 07:18:00 No 4 mg, Route: PO, Drug form: TABDIS, ONCE, Dosing Weight 86.364, kg, Priority: STAT, Start date: 11/24/14 2:18:00, Stop date: 11/24/14 2:18:00 [facility] Saline Flush 0.9% 2014-11-24 02:47:00 No Notes: Same as: BD Posiflush Sterile [facility] Nexium 2014-11-12 14:00:00 No 20 mg, Route: PO, Drug form: ECCAP, BID, Dosing Weight 88.818, kg, Start date: 11/12/14 9:00:00, Duration: 30 day, Stop date: 12/11/14 17:00:00 [facility] 2014-11-12 14:00:00 No Notes: Tablet should not be chewed or crushed. (Same as: Protonix) [facility] tramadol hydrochloride 50 MG Oral Tablet 2014-11-11 22:11:00 Yes 50 mg = 1 tab, PO, Q6H, PRN Pain Score 1-3, X 7 day, # 28 tab, 0 Refill(s) [facility] Ketorolac 2014-11-11 21:18:00 No 4 days MEDICATION WASTE Product Size: 30 mg Product Wasted: ___ mg [facility] Tramadol 2014-11-11 17:58:00 No Notes: Not to exceed 400mg/day. (Same As: Ultra) [facility] tramadol hydrochloride 50 MG Oral Tablet 2014-11-11 17:39:00 No Notes: Not to exceed 400mg/day. (Same As: Ultra) [facility] Acetaminophen 325 MG / Hydrocodone Bitartrate 5 MG Oral Tabl et [Clarence 5/325] 2014-11-11 15:55:00 No 1 tab, Route: PO, Dosing Weight 88.818, kg, ONCE, Start date: 11/11/14 10:55:00, Stop date: 11/11/14 10:55:00 [facility] Acetaminophen 2014-11-11 14:57:00 No Notes: Do not exceed 4 gm/day. (Same as: Tylenol) [facility] Morphine 2014-11-11 12:59:00 No Not es: (Same as:MORPhine Sulfate) [facility] Fentanyl 2014-11-11 11:11:00 No 50 microgram, Route: IVP, ONCE, Dosing Weight 88.818, kg, Priority: STAT, Start date: 11/11/14 6:11:00, Stop date: 11/11/14 6:11:00 [facility] Saline Flush 0.9% 2014-11-11 11:01:00 No Notes: (Same as: BD Posiflush) [facility] Dilaudid 2014-11-05 16:41:00 No 1 mg, Route: IVP, ONCE, Dosing Weight 88.636, kg, Priority: STAT, Start date: 11/05/14 11:41:00, Stop date: 11/05/14 11:41:00 [facility] Ciprofloxacin 2 MG/ML Injectable Solution [Cipro] 2014-11-05 10:00:00 No Notes: Do not refrigerate [facility] Flagyl 2014-11-05 05:00:00 No Notes: (Same as: Flagyl) Avoid alcohol. [facility] Protonix 2014-11-05 04:11:00 No Notes: For IV push reconstitute with 10 ml 0.9% sodium chloride and push over 2 minutes. (Same as: Protonix) [facility] Hydromorphone 2014-11-05 03:38:00 No 1.5 mg, 1.5 mL, Route: IV, Drug form: INJ, Q4H, Dosing Weight 88.636, kg, PRN Pain Score 7-10, Start date: 11/04/14 22:38:00, Stop date: 12/04/14 22:37:00 [facility] Thiamine 2014-11-05 02:00:00 No Notes: (Rajesh e As: Vitamin B1) [facility] Zofran 2014-11-05 01:29:00 No Notes: (Same as: Zofran) MEDICATION WASTE Product Size: 4 mg Product Wasted: ___ mg Lucia Simpson Morphine 2014-11-05 01:29:00 No Not es: (Same as:MORPhine Sulfate) Lucia Simpson D5NS 1,000 mL 2014-11-05 01:27:00 No 1,000 mL, Rate: 100 ml/hr, Infuse over: 10 hr, Route: IV, Dosing Weight 88.636 kg, Total Volume: 1,000, Start date: 11/04/14 20:27:00, Duration: 30 day, Stop date: 12/04/14 20:26:00 Lucia Simpson Esomeprazole 20 MG Enteric Coated Capsule [Nexium] 2014-10 00:35:00 Yes 20 mg = 1 cap, PO, BID, # 90 cap, 0 Refi ll(s) [facility] Vital Signs Vital Name Observation Time Observation Value Comments Source Systolic (mm Hg) 2015-06-22 12:49:00 [facility] Diastolic (mm Hg) 2015-06-22 12:49:00 [facility] Respitory Rate 2015-06-22 12:49:00 [facility] Heart Rate 2015-06-22 12:49:00 [facility] Systolic (mm Hg) 2015-06-22 11:23:00 [facility] Diastolic (mm Hg) 2015-06-22 11:23:00 [facility] Heart Rate 2015-06-22 11:23:00 [facility] Respitory Rate 2015-06-22 11:23:00 [facility] Height 2015-06-22 09:12:00 180.34 cm [facility] Weight 2015-06-22 09:12:00 [facility] BMI Calculated 2015-06-22 09:12:00 [facility] Systolic (mm Hg) 2015-06-22 09:12:00 [facility] Diastolic (mm Hg) 2015-06-22 09:12:00 [facility] Respitory Rate 2015-06-22 09:12:00 [facility] Heart Rate 2015-06-22 09:12:00 [facility] Temperature Oral (F) 2015-06-22 09:12:00 98.6 F [facility] Weight 2015-06-17 02:18:00 [facility] BMI Calculated 2015-06-17 02:18:00 [facility] Height 2015-06-17 02:18:00 180.34 cm [facility] Heart Rate 2015-06-17 02:18:00 [facility] Respitory Rate 2015-06-17 02:18:00 [facility] Systolic (mm Hg) 2015-06-17 02:18:00 [facility] Diastolic (mm Hg) 2015-06-17 02:18:00 [facility] Temperature Oral (F) 2015-06-17 02:18:00 98.2 F [facility] Systolic (mm Hg) 2015-05-24 06:00:00 [facility] Diastolic (mm Hg) 2015-05-24 06:00:00 [facility] Respitory Rate 2015-05-24 06:00:00 [facility] Respitory Rate 2015-05-24 05:00:00 [facility] Systolic (mm Hg) 2015-05-24 04:00:00 [facility] Diastolic (mm Hg) 2015-05-24 04:00:00 [facility] Respitory Rate 2015-05-24 04:00:00 [facility] Heart Rate 2015-05-24 00:41:00 [facility] Systolic (mm Hg) 2015-05-24 00:41:00 [facility] Diastolic (mm Hg) 2015-05-24 00:41:00 [facility] BMI Calculated 2015-05-23 21:10:00 [facility] Weight 2015-05-23 21:10:00 [facility] Heart Rate 2015-05-23 21:10:00 [facility] Height 2015-05-23 21:10:00 180.34 cm [facility] Systolic (mm Hg) 2014-11-24 09:10:00 [facility] Diastolic (mm Hg) 2014-11-24 09:10:00 [facility] Respitory Rate 2014-11-24 09:10:00 [facility] Systolic (mm Hg) 2014-11-24 08:15:00 [facility] Diastolic (mm Hg) 2014-11-24 08:15:00 [facility] Respitory Rate 2014-11-24 08:15:00 [facility] Heart Rate 2014-11-24 07:05:00 [facility] Systolic (mm Hg) 2014-11-24 07:05:00 [facility] Diastolic (mm Hg) 2014-11-24 07:05:00 [facility] Respitory Rate 2014-11-24 07:05:00 [facility] Temperature Oral (F) 2014-11-24 02:44:00 97.1 F [facility] Weight 2014-11-24 02:44:00 [facility] BMI Calculated 2014-11-24 02:44:00 [facility] Height 2014-11-24 02:44:00 180.34 cm [facility] Heart Rate 2014-11-24 02:44:00 [facility] Systolic (mm Hg) 2014-11-11 20:34:00 [facility] Diastolic (mm Hg) 2014-11-11 20:34:00 [facility] Heart Rate 2014-11-11 20:34:00 [facility] Respitory Rate 2014-11-11 20:34:00 [facility] Temperature Oral (F) 2014-11-11 20:34:00 98.8 F [facility] Heart Rate 2014-11-11 16:34:00 [facility] Systolic (mm Hg) 2014-11-11 16:34:00 [facility] Diastolic (mm Hg) 2014-11-11 16:34:00 [facility] Temperature Oral (F) 2014-11-11 16:34:00 98.6 F [facility] Respitory Rate 2014-11-11 16:34:00 [facility] Height 2014-11-11 16:34:00 180.34 cm [facility] Respitory Rate 2014-11-11 16:02:00 [facility] Systolic (mm Hg) 2014-11-11 16:02:00 [facility] Diastolic (mm Hg) 2014-11-11 16:02:00 [facility] Heart Rate 2014-11-11 16:02:00 [facility] Temperature Oral (F) 2014-11-11 10:19:00 98.0 F [facility] Weight 2014-11-11 10:19:00 [facility] BMI Calculated 2014-11-11 10:19:00 [facility] Height 2014-11-11 10:19:00 180.34 cm [facility] Systolic (mm Hg) 2014-11-06 13:00:00 [facility] Diastolic (mm Hg) 2014-11-06 13:00:00 [facility] Heart Rate 2014-11-06 13:00:00 [facility] Respitory Rate 2014-11-06 13:00:00 [facility] Temperature Oral (F) 2014-11-06 13:00:00 98.6 F [facility] Heart Rate 2014-11-06 09:00:00 [facility] Respitory Rate 2014-11-06 09:00:00 [facility] Systolic (mm Hg) 2014-11-06 09:00:00 [facility] Diastolic (mm Hg) 2014-11-06 09:00:00 [facility] Temperature Oral (F) 2014-11-06 09:00:00 98.1 F [facility] Respitory Rate 2014-11-06 05:00:00 [facility] Systolic (mm Hg) 2014-11-06 05:00:00 [facility] Diastolic (mm Hg) 2014-11-06 05:00:00 [facility] Heart Rate 2014-11-06 05:00:00 [facility] Temperature Oral (F) 2014-11-06 05:00:00 98.5 F [facility] BMI Calculated 2014-11-05 00:43:00 [facility] Weight 2014-11-05 00:43:00 [facility] Height 2014-11-05 00:43:00 180.34 cm [facility] Procedures Procedure Date / Time Performed Performing Clinician Sourc e Cholecystectomy [facility] Drainage of pleural cavity via chest tube [facility] ORIF - Open reduction and internal fixation of fracture<sup>1</s up> [facility] Wrist repair [facility] Encounters Start Date/Time End Date/Time Encounter Type Admission Type [facility] Care Department Encounter ID Source 2015-06-22 03:09:00 2015-06-22 06:59:00 Outpatient Per Ortez [facility] [id number] 2015-06-16 20:12:00 2015-06-16 23:37:00 Outpatient Mary Begum [facility] [id number] 2015-05-23 16:04:00 2015-05-24 01:03:00 Outpatient Zach Parsons [facility] [id number] 2014-11-23 21:26:00 2014-11-24 04:12:00 Outpatient Cristiana Bhardwaj [facility] [id number] 2014-11-11 05:08:00 2014-11-11 19:00:00 Outpatient Klaus Mercedez Karly [facility] [id number] 2014-11-05 13:01:00 2014-11-06 10:38:00 Outpatient Jose Bartholomew [facility] [id number] Results Test Description Test Time Test Comments Results Result Comments [facility] CARDIAC ENZYMES 2015-05-24 02:40:00 1.2 [facility] CARDIAC ENZYMES 2015-05-24 02:40:00 <0.02 [facility] CARDIAC ENZYMES 2015-05-24 02:40:00 1.0 [facility] CARDIAC ENZYMES 2015-05-24 02:40:00 85 [facility] CHEM PANEL 2015-05-24 02:40:00 80 [facility] CHEM PANEL 2015-05-24 02:40:00 11.7 [facility] CHEM PANEL 2015-05-24 02:40:00 0.3 [facility] CHEM PANEL 2015-05-24 02:40:00 46 [facility] CHEM PANEL 2015-05-24 02:40:00 0.9 [facility] CHEM PANEL 2015-05-24 02:40:00 4.0 [facility] CHEM PANEL 2015-05-24 02:40:00 9 [facility] CHEM PANEL 2015-05-24 02:40:00 145 [facility] CHEM PANEL 2015-05-24 02:40:00 93 [facility] CHEM PANEL 2015-05-24 02:40:00 7.6 [facility] CHEM PANEL 2015-05-24 02:40:00 3.6 [facility] CHEM PANEL 2015-05-24 02:40:00 8.7 [facility] CHEM PANEL 2015-05-24 02:40:00 26 [facility] CHEM PANEL 2015-05-24 02:40:00 105 [facility] CHEM PANEL 2015-05-24 02:40:00 1.1 [facility] CHEM PANEL 2015-05-24 02:40:00 10 [facility] CHEM PANEL 2015-05-24 02:40:00 138 [facility] CHEM PANEL 2015-05-24 02:40:00 97 [facility] CHEM PANEL 2015-05-24 02:40:00 4.7 [facility] HEMATOLOGY 2015-05-24 02:40:00 4.46 [facility] HEMATOLOGY 2015-05-24 02:40:00 7.7 [facility] HEMATOLOGY 2015-05-24 02:40:00 Test Item MCH (test code = MCH) 30.3 pg 27.0-31.0 [facility] YmgrftdVKWPVXLKSZ2213-10-18 02:40:0040.6[facility]ann[facility]MATOLOGY 2015-05-24 02:40:0013.5[facility] JvprfthUHYWLQSDII3010-92-80 02:40:47360Obphxlft UepaauyVKUWWPLRIY8366-34-48 02:40:0017.8[facility] AmpwcuzYRAPFVCQRH9029-54-66 02:40:0091.1[facility] EcjvmlkBYVQMCLUMT2019-51-82 02:40:0033.3[facility] MWSBQORQDY8411-68-11 02:40:008.4[facility]annURINE AND ECSZS4745-08-78 06:50:00>=1.050 *ABN*(11/24/14 1:50 AM)[facility] PKJBV3582-52-75 06:50:00Negative (11/24/14 1:50 AM)[facility] BUPPC7745-61-55 06:50:00Negative (11/24/14 1:50 AM)[facility] YXRPP0642-58-63 06:50:00Negative (11/24/14 1:50 AM)[facility] YJVAI8619-44-09 06:50:00Negative *NA*(11/24/14 1:50 AM)[facility] KRQPS9861-01-84 06:50:007.0[facility] RXLCD0651-67-33 06:50:00Clear (11/24/14 1:50 AM)[facility] VDGNZ8390-14-20 06:50:00Yellow *NA*(11/24/14 1:50 AM)[facility]annCHEM YDDCR8984-09-68 03:40:27105Hemfypqd HermannELECTROLYTES 2014-11-24 03:40:0014.1[facility] NcjqkwgGWCNJTWHNZFT4650-52-96 03:40:005[facility] AxeypedHRLWUPVFTMUB5988-29-66 03:40:004.4[facility] KftzedtGICWUDRGPHGX8714-26-49 03:40:000.9[facility] ZqdkovgHDHHSMTOYRNB7511-02-42 03:40:0090[facility] JJJLPRRFAVJJ3497-38-36 03:40:59496Wpbzlipr KnqhhwbKDBMXXRFBAFN8155-86-05 03:40:0085[facility] PylaezoJOVXGCQYBIYO7855-19-38 03:40:000.4[facility] PEIBHINQRABG5462-38-44 03:40:99051Ijxkqyys VesjpovLYROKTZDYURA9283-52-67 03:40:31597Lnaravhj FcfhkokEQVCZOEZXORM5982-51-66 03:40:001.0[facility] XFXBYDGIOCIC0199-13-99 03:40:005[facility] DnxkywtWGZRBJGPFWCO2909-82-42 03:40:00 3.1[facility] LvsbbzbZKAFVZAIRUZC7993-91-23 03:40:0024[facility] HermannELECTROLYTES 2014-11-24 03:40:008.8[facility] GowltbiJHLJHJNBSMZP5619-27-03 03:40:008.2[facility] OlifcusMBWTLNIBSHNZ8664-67-59 03:40:003.8[facility] ObeydmeKWXQMXMBRZFP5634-60-77 03:40:0096[facility] VfohhwsGEFYNEGHDWDX1631-15-65 03:40:51075Wdtkeejr [facility] TYVUSFJOBO1354-46-09 03:40:0020.3[facility] AgtcsfyQYZCDHSBGM4754-45-63 03:40:00* Test Item Value Reference Range Interpretation Comments MCH (test code = MCH) 31.1 pg 27.0-31.0 [facility] GqnnuqzYSSYZPBYBA7658-38-69 03:40:0032.6[facility] HermannHEMATOLOGY 2014-11-24 03:40:008.4[facility] YwvjewgEDAFNZSCDG2468-91-21 03:40:06012Izkrnhhu ZbnlhndBGNSHSOKHT5286-51-86 03:40:0015.4[facility] YetquykCZXLMXHPVQ5355-27-33 03:40:004.96[facility] CqjgnpnGBGNZTSXXV3358-23-25 03:40:0095.4[facility] RSTELFNMPL5687-41-28 03:40:0047.3[facility] GxqqypaQTFCTANMIA2783-69-47 03:40:00 6.9[facility] KvononrASSAJPRUUA4445-36-38 03:40:001+ *ABN*(11/23/14 10:40 PM) [facility] AsmlydkRQLAMAKUWQ9656-11-74 03:40:000.0[facility] HermannHEMATOLOGY 2014-11-24 03:40:000.6[facility] BpkxqaqHRCCMQGFGR9748-77-85 03:40:004.4[facility] RiqeiyiWWVTQMXKZB5076-71-30 03:40:000.6[facility] KjpxcqeMKODKXVWHN5642-92-88 03:40:000.2[facility] DrokwbjZHVMKBATUM6603-54-02 03:40:008.5[facility] MXIBHZJOML4952-98-82 03:40:0023.2[facility] ZancmxjCULJMUFUID3059-64-13 03:40:00 1.6[facility] NvlqrxtVXQPCVAZFS9686-99-10 03:40:003.5[facility] HermannHEMATOLOGY 2014-11-24 03:40:0064.2[facility] HermannCARDIAC XJZNIGT5377-27-75 18:06:000.8 [facility]annCARDIAC TOGUMTY3148-34-71 18:06:00<0.02[facility] HermannCARDIAC MAOXHHG0095-11-01 18:06:0055[facility] BgekpbyVQZWHA0271-20-82 18:06:00See Note 5*NA*(11/11/14 1:06 PM)[facility] XokrchcIUVEDM6940-23-56 18:06:0020[facility] GorsiayJFCROZ6765-13-48 18:06:01140Agcjcpgd AutheaiSJNKZP2978-24-25 18:06:008.10 [facility] WsyevdnTJQSQW7815-20-58 18:06:49710Lmcfpxxn HermannDRUG SCREEN 2014-11-11 11:37:00Negative *NA*(11/11/14 6:37 AM)[facility] HermannDRUG SCREEN 2014-11-11 11:37:00Negative *NA*(11/11/14 6:37 AM)[facility] HermannDRUG SCREEN 2014-11-11 11:37:00Negative *NA*(11/11/14 6:37 AM)[facility] HermannDRUG SCREEN 2014-11-11 11:37:00See Note 6(11/11/14 6:37 AM)[facility] 2014-11-11 11:37:00Negative *NA*(11/11/14 6:37 AM)[facility] 2014-11-11 11:37:00Negative *NA*(11/11/14 6:37 AM)[facility] 2014-11-11 11:37:00Positive *ABN*(11/11/14 6:37 AM)[facility] 2014-11-11 11:37:00Negative *NA*(11/11/14 6:37 AM)[facility] 2014-11-11 11:37:00None Seen (11/11/14 6:37 AM)[facility] 2014-11-11 11:37:00None Seen (11/11/14 6:37 AM)[facility] 2014-11-11 11:37:00None Seen (11/11/14 6:37 AM)[facility] 2014-11-11 11:37:00Negative (11/11/14 6:37 AM)[facility] 2014-11-11 11:37:00Negative (11/11/14 6:37 AM)[facility] 2014-11-11 11:37:00Negative *NA*(11/11/14 6:37 AM)[facility] 2014-11-11 11:37:00Negative (11/11/14 6:37 AM)[facility] 2014-11-11 11:37:000.2[facility] [id number] 11:37:00Clear (11/11/14 6:37 AM)[facility] [id number] 11:37:00Yellow *NA*(11/11/14 6:37 AM)[facility] [id number] 11:37:00* Test Item Value Reference Range Interpretation Comments UA Spec Grav (test code = UA Spec Grav) 1.020 1 [facility] [id number] 11:37:00* Test Item Value Reference Range Interpretation Comments UA pH (test code = UA pH) 6.0 1 5.0-8.0 [facility] [id number] 11:35:000.7[facility] [id number] 11:35:00<0.02[facility] [id number] 11:35:0027[facility] [id number] 11:35:0068[facility] FTSNXHC8514-02-44 11:35:000.5[facility]annCHEM CKEXD7783-10-97 11:35:002.0[facility]annCHEM HONVH9651-93-44 11:35:96411Bknitfxw [facility] GBZWYMVJVEFT6569-98-90 11:35:0021[facility] WocqoknMWNRXJYHHAAT6909-42-96 11:35:00 113[facility] KccdhzzRCNWOBEZJTCN6697-99-51 11:35:003.9[facility] QICFAHFOFWXM3176-03-44 11:35:90925Njowmwaj MahhduaBSEDEQWHNXIW3258-74-98 11:35:11857Xhawecau GxcggvrLNCJJWSRUSKV1481-18-07 11:35:0013.9[facility] YTDNMIDWRDES4860-03-79 11:35:000.4[facility] BxshgkfNKOPTAWZENSV0317-67-32 11:35:007.6[facility] MmjkshiXWCITZCETIIO2989-51-41 11:35:006.7[facility] IZSBDHXCTZBH5175-80-56 11:35:003.2[facility] UebcvcwGAIRNRQTZOYY7366-86-97 11:35:17377Xefzfxdu GfuonfjGSZMCHGIQGVI2070-97-77 11:35:18160Vlhtktyr [facility] YMVZBCCYCRPD5317-83-63 11:35:000.9[facility] IzhsnksLLYEVOMBBBKK4216-78-75 11:35:003.5[facility] ThyczvqHBQBOOAGQVNP3789-77-59 11:35:003[facility] WSHOVXSISKNK1240-70-65 11:35:000.9[facility] GyepnzhIRRFYFDTMCWT8707-15-82 11:35:003[facility] LbmayhnFYJYQXPQWGSJ9101-92-26 11:35:98020Zoiuvpdk [facility] ZYNEFGZLEOYU9222-46-02 11:35:33373Ugzjyvgn HcnbcvaSVMVOGDRTN9141-62-81 11:35:00 11.2[facility] XmbkitsCFEBEGWHKK1631-47-09 11:35:0054.5[facility]annHEMATOLOGY 2014-11-11 11:35:0028.3[facility] WbywiauFKWIZXSMFH8859-74-37 11:35:001.4[facility] VatymhkCAYANUOPFQ9458-95-88 11:35:000.6[facility] DppdqoiYNVSSCDOUD8656-23-35 11:35:000.3[facility] CinnvhrYHVDIYVDMS9728-01-53 11:35:000.1[facility] RMMHUWOUDY4936-79-64 11:35:005.0[facility] CqpyxayYGGVFDRDKG2228-52-01 11:35:001.0 [facility] MqncrpfDXWMVXQLVX3349-35-49 11:35:002.7[facility]annHEMATOLOGY 2014-11-11 11:35:00* Test Item Value Reference Range Interpretation Comments PTT (test code = PTT) 26.9 s 22.9-35.8 [facility] TopnmlqUUPPGLBVYR5074-98-80 11:35:00* Test Item Value Reference Range Interpretation Comments PT (test code = PT) 13.3 s 12.0-14.7 [facility] BaoeinsHLCKOSNQTC1375-57-67 11:35:001.01[facility]annHEMATOLOGY 2014-11-11 11:35:008.5[facility] QhvejiiIVFAXPATAO7843-18-50 11:35:0041.7[facility] MxoncypYJECOIDFLE3709-04-27 11:35:0096.5[facility] RqvgipcLNKESCGZFY0960-78-07 11:35:005.0[facility] HkvymjlBTKFPPLKFD2277-56-21 11:35:0033.1[facility] SZWTBUATFY5354-27-93 11:35:0020.1[facility] TtituwwJGSYHCBKWL7747-78-43 11:35:00 443[facility] OwvrtpdUQHYIWAAJK5068-94-07 11:35:00* Test Item Value Reference Range Interpretation Comments MCH (test code = MCH) 32.0 pg 27.0-31.0 [facility] BackyikVSETBEFVRG4722-32-80 11:35:004.32[facility]annHEMATOLOGY 2014-11-11 11:35:0013.8[facility] JpaxnblWCUQFDKWZP1537-04-12 11:35:000.181 [facility] VudbbvmEYARJRTZQR7080-94-86 11:35:34924Vywsqvln HermannCHEM PANEL 2014-11-06 11:58:000.6[facility]annCHEM LQBRY5594-89-54 11:58:003.4[facility]annCHEM ULSAU4440-29-21 11:58:000.2[facility]annCHE[facility] YUUDA6154-20-59 11:58:000.4[facility]annCHEM TRCVS9563-00-25 11:58:000.9[facility]annCHE[facility] FSEOO9257-05-49 11:58:66272Edoqvfyb HermannCHEM NGXCX8120-31-48 11:58:65542 [facility]annCHE[facility] SAMJA3134-48-73 11:58:72691Ortrexxb HermannCHEM PANEL 2014-11-06 11:58:006.4[facility]annCHEM FNVPR2749-50-00 11:58:003.0[facility] EdhbqasCBRRWAUKPI0031-09-45 11:58:00Negative (11/06/14 6:58 AM)[facility] UXRRQNRDYV0867-68-19 11:58:00Negative *NA*(11/06/14 6:58 AM)[facility] YAHESUZYML1432-01-10 11:58:00Negative *NA*(11/06/14 6:58 AM)[facility] XGZORYXZBR9876-83-55 11:58:00Negative *NA*(11/06/14 6:58 AM)[facility] ZVUICIRNFP6562-09-39 11:58:00Negative *NA*(11/06/14 6:58 AM)[facility]annCHE[facility] LFRQJ4907-87-34 10:07:76013Tqhltysp HermannCHEM BJOEM1289-80-97 10:07:000.6 [facility] KBIUV6566-98-12 10:07:61312Rhnnwhgf HermannCHEM PANEL 2014-11-05 10:07:01055Uarxchnd HermannCHEM ZODHB1738-82-26 10:07:002.7[facility]annCHEM GKDCR6497-80-81 10:07:35365Gyzflxnq HermannCHEM ZEXTV7706-65-33 10:07:0025[facility]annCHEM CHKUK1353-99-49 10:07:006.1[facility]annCHE[facility] CZAIY4649-43-29 10:07:007.8[facility]annCHEM WMIRZ6261-11-82 10:07:000.9 [facility]annCHE[facility] ZHVEJ0751-66-31 10:07:006[facility]annCHEM PANEL 2014-11-05 10:07:0090[facility]annCHEM UFDMS2959-35-64 10:07:91972Gmdsdbio HermannCHEM JJXNN8587-33-36 10:07:56277Hhikgqvg HermannCHEM DSYUY9642-54-99 10:07:003.5[facility]annCHEM MHZOK0823-24-24 10:07:003.4[facility]annCHEM IXQFO0168-54-97 10:07:007[facility]annCHEM WZNSL7652-91-37 10:07:0010.5 [facility]annCHE[facility] FVMBR2871-81-53 10:07:000.8[facility] HermannCHEM PANEL 2014-11-05 10:07:002.0[facility] MrtagtmQDGBWLASKE0422-78-95 10:07:000.1[facility] PdjybhtPTKQFCLAEE7004-28-52 10:07:000.1[facility] KqmcyemJMFVYRCUKG7566-61-94 10:07:001.7[facility] KlzpvpwLWKATQRIAK9279-12-83 10:07:000.8[facility] CVCOQPTYTQ9469-72-46 10:07:004.8[facility] VzkcksdTRAVQAGQQU2612-35-74 10:07:001.4 [facility] YwaentaSVBSVPAEPX9603-87-26 10:07:000.7[facility] HermannHEMATOLOGY 2014-11-05 10:07:0023.0[facility] TfmoazvYJLTYBPOWU7018-11-10 10:07:0011.0[facility] KdxegtjJCGGTFJDLP2682-52-20 10:07:0063.9[facility] LmpzttpGZKYYAYVJT0633-51-47 10:07:00* Test Item Value Reference Range Interpretation Comments PT (test code = PT) 13.1 s 12.0-14.7 [facility] DoglnvdWRJJHWPAWU9309-84-08 10:07:000.99[facility]annHEMATOLOGY 2014-11-05 10:07:0098.6[facility] RsmsuhjGRQRCEGNAG1360-81-00 10:07:00* Test Item Value Reference Range Interpretation Comments MCH (test code = MCH) 32.4 pg 27.0-31.0 [facility] QbyremgREJTZRLOTL1240-93-07 10:07:0012.4[facility]annHEMATOLOGY 2014-11-05 10:07:0037.9[facility] PjbftlxWAYQSIPCOJ9136-96-88 10:07:003.84[facility] DgeqzbdYSQYKRBBGP4672-64-26 10:07:007.5[facility] WlplfxmEFNSKOXJZX4166-23-10 10:07:16547Qwzdhvpe IbdrycrJKYIEOJYKP7160-25-13 10:07:009.2[facility] XXKEJOWNYO1031-45-97 10:07:0032.9[facility] RgjurlsQIRZVLBCPZ4906-17-17 10:07:00 19.9[facility]
== END 2020-04-02 23:30 | disposition home or self-care (01) ==
LOC: ER 22:47
DX: K08.89 Other specified disorders of teeth and supporting structures (principal); K02.9 Dental caries, unspecified
CPT/HCPCS: 99282

== ENCOUNTER 2020-04-17 10:07 | Emergency (ER) | payer OTHER ==
[~2020-04-17] VITALS: Ht 180.3 cm; Wt 86.2 kg
[2020-04-17] MEDS ORDERED: PANTOPRAZOLE 40 MG 10ML VIAL IV STA (10:23)
[2020-04-17] MEDS ORDERED: KETOROLAC TROMETHAMINE 30 MG/ML VIAL IV STA (10:23)
[2020-04-17] MEDS ORDERED: ONDANSETRON HCL INJ 2MG/ML 2ML 2 MG/ML VIAL IV STA (10:23)
[2020-04-17] MEDS ORDERED: SODIUM CHLORIDE 0.9% 1000ML 1,000 ML IV STA (10:23)
[2020-04-17 10:45] LABS: BASOPHILS # (AUTO) 0.1 (0.0-0.1); BASOPHILS % 0.6 % (0.0-1.0); EOSINOPHILS # (AUTO) 0.3 (0.0-0.4); EOSINOPHILS % 2.8 % (0.0-6.0); HEMATOCRIT 42.1 % (38.2-49.6); HEMOGLOBIN 13.9 g/dL (14.0-18.0); LYMPHOCYTES # (AUTO) 1.8 (1.0-3.2); LYMPHOCYTES % 14.9 % (18.0-39.1); MEAN CORPUSCULAR HEMOGLOBIN 28.2 pg (28-32); MEAN CORPUSCULAR VOLUME 85.4 fL (81-99); MONOCYTES # (AUTO) 1.1 (0.2-0.8); MONOCYTES % 9.4 % (4.4-11.3); NEUTROPHILS # (AUTO) 8.6 (2.1-6.9); NEUTROPHILS % 71.9 % (38.7-80.0); PLATELET COUNT 549 x10e3/uL (140-360); RED BLOOD COUNT 4.93 x10e6/uL (4.3-5.7); RED CELL DISTRIBUTION WIDTH 14.6 % (11.7-14.4)
[2020-04-17] MEDS ORDERED: DIATRIZOATE MEGL/DIATRIZOA SOD 30 ML BTL PO ONE (10:47)
[2020-04-17 11:06] LABS: ALANINE AMINOTRANSFERASE 22 IU/L (0-55); ALBUMIN 4.6 g/dL (3.5-5.0); ALBUMIN/GLOBULIN RATIO 1.6 (0.8-2.0); ALKALINE PHOSPHATASE 70 IU/L (40-150); AMYLASE 71 U/L (25-125); ANION GAP 14.3 mmol/L (8-16); BLOOD UREA NITROGEN 11 mg/dL (7-26); BUN/CREATININE RATIO 12 (6-25); CALCIUM 9.4 mg/dL (8.4-10.2); CARBON DIOXIDE 24 mmol/L (22-29); CHLORIDE 100 mmol/L (98-107); CREATINE KINASE 41 IU/L (30-200); CREATININE, SERUM 0.93 mg/dL (0.72-1.25); EST GLOMERULAR FILTRATION RATE > 60 ML/MIN (60-); GLUCOSE 92 mg/dL (74-118); LIPASE 56 U/L (8-78); MAGNESIUM 2.1 MG/DL (1.3-2.1); POTASSIUM 3.3 mmol/L (3.5-5.1); SODIUM 135 mmol/L (136-145)
[2020-04-17] MEDS ORDERED: SODIUM CHLORIDE 0.9% 50ML 50 ML ONE (11:07)
[2020-04-17] MEDS ORDERED: IOPAMIDOL 370 MG/ML 200 ML INFUS..BTL INJ ONE (11:07)
--- NOTE | 2020-04-17 11:14 | Diagnostic Imaging Report ---
EXAMINATION: CHEST SINGLE (PORTABLE) INDICATION: Abdominal pain, vomiting COMPARISON: Report of chest radiograph of 08/14/2014 (images not available for comparison) FINDINGS: LINES/TUBES:EKG leads overlie the chest. LUNGS:The lungs are well-inflated. No focal consolidation or pulmonary edema. PLEURA:No pleural effusion or pneumothorax. MEDIASTINUM:The cardiomediastinal silhouette appears normal in size and shape. BONES/SOFT TISSUES:No acute osseous injury. ABDOMEN:No free air under the diaphragm. IMPRESSION: No focal pneumonia or pulmonary edema. Signed by: Taras Naqvi MD on 04/17/2020 11:11 AM
[2020-04-17 11:17] LABS: INR 1.02; PARTIAL THROMBOPLASTIN TIME 29.2 seconds (23.8-35.5); PROTHROMBIN TIME 13.9 seconds (11.9-14.5)
[2020-04-17] MEDS ORDERED: MORPHINE SULFATE 2 MG/ML SYR 1ML IV STA (11:48)
--- NOTE | 2020-04-17 11:57 | Emergency Department Note ---
History of Present Illnes History of Present Illness Chief Complaint: Abdominal Complaints History of Present Illness This is a 49 year old male PATIENT IN FROM HOME WITH COMPLAINTS OF LLQ ABDOMINAL PAIN, NAUSEA, AND VOMITING X 2 DAYS; PATIENT RATES PAIN 9/10. PATIENT ALERT AND ORIENTED, RESP EVEN AND NONLABORED, APPEARS UNCOMFORTABLE, O2 SATS 100% ON ROOM AIR. Historian: Patient Arrival Mode: Car Paediatric Surgeon Required: No Onset (how long ago): day(s) (2) Location: LEFT ABDOMEN Quality: PAIN Radiation: Reports non-radiation Severity: moderate Onset quality: gradual Timing of current episode: constant Progression: worsening Chronicity: new Context: Denies recent illness Relieving factors: none Exacerbating factors: none Associated symptoms: Reports nausea/vomiting Past Medical/Family History Physician Review I have reviewed the patient's past medical and family history. Any updates have been documented here. Past Medical History Recent Fever: No Clinical Suspicion of Infectio: Yes New/Unexplained Change in Ment: No Other Medical History: PNEUMOTHORAX Other Surgery: R WRIST, LIPOMA REMOVED, L FOOT SX Social History Smoking Cessation: Never Smoker Counseling Performed: No Alcohol Use: None Any Illegal Drug Use: No TB Exposure/Symptoms: No Physically hurt or threatened: No Family History Family history of heart diseas: No Other Last Tetanus: UTD Any Pre-Existing Lines (PICC,: No Review of Systems Review of Systems Constitutional: Reports no symptoms EENTM: Reports no symptoms Cardiovascular: Reports no symptoms Respiratory: Reports no symptoms Gastrointestinal: Reports as per HPI, Reports abdominal pain, Reports nausea, Reports vomiting Genitourinary: Reports no symptoms Musculoskeletal: Reports no symptoms Integumentary: Reports no symptoms Neurological: Reports no symptoms Psychological: Reports no symptoms Endocrine: Reports no symptoms Hematological/Lymphatic: Reports no symptoms Physical Exam Related Data Allergies: Coded Allergies: No Known Allergies (Unverified , 04/17/20) Triage Vital Signs Vital Signs Date Time Temp Pulse Resp B/P (MAP) Pulse Ox O2 Delivery O2 Flow Rate FiO2 04/17/20 10:07 98.5 102 22 141/87 100 Room Air Vital signs reviewed: Yes Physical Exam CONSTITUTIONAL Constitutional: Present well-developed, Present well-nourished HENT HENT: Present normocephalic, Present atraumatic, Present oropharynx clear/mo ist, Present nose normal HENT L/R: Present left ext ear normal, Present right ext ear normal EYES Eyes: Reports PERRL, Reports conjunctivae normal NECK Neck: Present ROM normal PULMONARY Pulmonary: Present effort normal, Present breath sounds normal CARDIOVASCULAR Cardiovascular: Present regular rhythm, Present heart sounds normal, Present capillary refill normal, Present normal rate GASTROINTESTINAL Abdominal: Present soft, Present bowel sounds normal, Present tender (MODERATE TENDERNESS LLQ>LUQ, NO R/G), Present left CVA tenderness; Absent right CVA tenderness GENITOURINARY Genitourinary: Present exam deferred SKIN Skin: Present warm, Present dry MUSCULOSKELETAL Musculoskeletal: Present ROM normal NEUROLOGICAL Neurological: Present alert, Present oriented x 3, Present no gross motor or sensory deficits PSYCHOLOGICAL Psychological: Present mood/affect normal, Present judgement normal Results Laboratory Result Diagram: 04/17/20 1020 04/17/20 1020 Laboratory Laboratory Tests Test 04/17/20 10:20 White Blood Count 11.90 x10e3/uL (4.8-10.8) Red Blood Count 4.93 x10e6/uL (4.3-5.7) Hemoglobin 13.9 g/dL (14.0-18.0) Hematocrit 42.1 % (38.2-49.6) Mean Corpuscular Volume 85.4 fL (81-99) Mean Corpuscular Hemoglobin 28.2 pg (28-32) Mean Corpuscular Hemoglobin Concent 33.0 g/dL (31-35) Red Cell Distribution Width 14.6 % (11.7-14.4) Platelet Count 549 x10e3/uL (140-360) Neutrophils (%) (Auto) 71.9 % (38.7-80.0) Lymphocytes (%) (Auto) 14.9 % (18.0-39.1) Monocytes (%) (Auto) 9.4 % (4.4-11.3) Eosinophils (%) (Auto) 2.8 % (0.0-6.0) Basophils (%) (Auto) 0.6 % (0.0-1.0) Neutrophils # (Auto) 8.6 (2.1-6.9) Lymphocytes # (Auto) 1.8 (1.0-3.2) Monocytes # (Auto) 1.1 (0.2-0.8) Eosinophils # (Auto) 0.3 (0.0-0.4) Basophils # (Auto) 0.1 (0.0-0.1) Absolute Immature Granulocyte (auto 0.05 x10e3/uL (0-0.1) Prothrombin Time 13.9 seconds (11.9-14.5) Prothromb Time International Ratio 1.02 Activated Partial Thromboplast Time 29.2 seconds (23.8-35.5) Sodium Level 135 mmol/L (136-145) Potassium Level 3.3 mmol/L (3.5-5.1) Chloride Level 100 mmol/L (98-107) Carbon Dioxide Level 24 mmol/L (22-29) Anion Gap 14.3 mmol/L (8-16) Blood Urea Nitrogen 11 mg/dL (7-26) Creatinine 0.93 mg/dL (0.72-1.25) Estimat Glomerular Filtration Rate > 60 ML/MIN (60-) BUN/Creatinine Ratio 12 (6-25) Glucose Level 92 mg/dL (74-118) Calcium Level 9.4 mg/dL (8.4-10.2) Magnesium Level 2.1 MG/DL (1.3-2.1) Total Bilirubin 0.5 mg/dL (0.2-1.2) Aspartate Amino Transf (AST/SGOT) 18 IU/L (5-34) Alanine Aminotransferase (ALT/SGPT) 22 IU/L (0-55) Alkaline Phosphatase 70 IU/L (40-150) Creatine Kinase 41 IU/L (30-200) Creatine Kinase MB 0.70 ng/mL (0-5.0) Troponin I 0.004 ng/mL (0-0.300) Total Protein 7.4 g/dL (6.5-8.1) Albumin 4.6 g/dL (3.5-5.0) Globulin 2.8 g/dL (2.3-3.5) Albumin/Globulin Ratio 1.6 (0.8-2.0) Amylase Level 71 U/L (25-125) Lipase 56 U/L (8-78) Lab results reviewed: Yes Imaging Imaging results reviewed: Yes Procedures 12 Lead ECG Interpretation ECG Interpretation : ECG: ECG 1 Paediatric Surgeon: Interpreted by ED physician Date: Apr 17, 2020 Time: 10:33 Rhythm: sinus rhythm Rate: normal BPM: 90 QRS axis: normal ST segments normal: Yes T waves normal: Yes Clinical Impression: normal ECG Assessment & Plan Medical Decision Making MDM N/V AND ABD PAIN - CBC, CHEM, AMYLASE/LIPASE, CARDIACS, UA/CX, ECG, CARDIACS, CT ABD/PELVIS - R/O DIVERTICULITIS, COLITIS, KIDNEY STONE, UTI/PYELONEPHRITIS, STEMI/NSTEMI, PANCREATITIS Reassessment Reassessment LIKELY KIDNEY STONE, PAIN IMPROVED - DC HOME, STRAINER, PUSH PO FLUIDS, TORADOL PO, TYL #3 PRN, FLOMAX, F/U PCP & UROLOGY Assessment & Plan Final Impression: (1) Kidney stone Depart Disposition: HOME, SELF-CARE Last Vital Signs Date Time Temp Pulse Resp B/P (MAP) Pulse Ox O2 Delivery O2 Flow Rate FiO2 04/17/20 10:56 98.8 79 16 151/79 99 Room Air Medications in the ED Pantoprazole Sodium 40 mg ONCE STAT IV Last administered on 04/17/20at 10:55; Admin Dose 40 MG; Start 04/17/20 at 10:23; Stop 04/17/20 at 10:29; Status DC Ondansetron HCl 4 mg ONCE STAT IV Last administered on 04/17/20at 10:55; Admin Dose 4 MG; Start 04/17/20 at 10:23; Stop 04/17/20 at 10:29; Status DC Ketorolac Tromethamine 30 mg ONCE STAT IV Last administered on 04/17/20at 10:55; Admin Dose 30 MG; Start 04/17/20 at 10:23; Stop 04/17/20 at 10:29; Status DC Sodium Chloride 1,000 ml @ 0 mls/hr Q0M STAT IV Last administered on 04/17/20at 10:55; Admin Dose 999 MLS/HR; Start 04/17/20 at 10:23; Stop 04/17/20 at 10:26; Status DC Diatrizoate Meglum/ Diatrizoate Sod 30 ml STK-MED ONCE PO ; Start 04/17/20 at 10:47; Stop 04/17/20 at 10:41; Status DC Sodium Chloride 50 ml @ ud STK-MED ONCE .ROUTE ; Start 04/17/20 at 11:07; Stop 04/17/20 at 11:01; Status DC Iopamidol 74,000 mg STK-MED ONCE INJ ; Start 04/17/20 at 11:07; Stop 04/17/20 at 11:01; Status DC Morphine Sulfate 4 mg NOW STAT IV ; Start 04/17/20 at 11:48; Stop 04/17/20 at 11:50; Status DC JESÚS BARRETT MD Apr 17, 2020 11:57
--- NOTE | 2020-04-17 12:52 | Diagnostic Imaging Report ---
EXAM: CT Abdomen and Pelvis WITH intravenous contrast INDICATION: Abdominal pain COMPARISON: MRCP 08/15/2014 TECHNIQUE: Abdomen and pelvis were scanned utilizing a multidetector helical scanner from the lung base to the pubic symphysis after administration of IV contrast. Coronal and sagittal reformations were obtained. Routine protocol was performed. Scan was performed during portal venous phase. IV CONTRAST: 100mL of Isovue 370 ORAL CONTRAST: Water RADIATION DOSE: Total DLP: 573 mGy*cm Dose modulation, iterative reconstruction, and/or weight based adjustment of the mA/kV was utilized to reduce the radiation dose to as low as reasonably achievable. FINDINGS: LOWER THORAX: Normal. HEPATOBILIARY: Diffuse hepatic steatosis. No focal liver lesion. No biliary ductal dilation. Status post cholecystectomy. SPLEEN: No splenomegaly. PANCREAS: No focal masses or ductal dilatation. ADRENALS: No adrenal nodules. KIDNEYS/URETERS: 3 mm nonobstructive left upper pole renal calculus. No hydronephrosis. Subcentimeter bilateral simple renal cysts. PELVIC ORGANS/BLADDER: Unremarkable. PERITONEUM / RETROPERITONEUM: No free air or fluid. LYMPH NODES: No lymphadenopathy. VESSELS: Mild scattered atherosclerotic calcifications of the nonaneurysmal abdominal aorta and major branches. GI TRACT: No abnormal bowel thickening. No bowel obstruction. Normal appendix. BONES AND SOFT TISSUES: No acute osseous injury. IMPRESSION: 3 mm nonobstructive left upper pole renal calculus. No hydronephrosis. Diffuse hepatic steatosis. Signed by: Taras Naqvi MD on 04/17/2020 12:49 PM
[2020-04-17 14:03] LABS: BILIRUBIN,URINE NEGATIVE (NEGATIVE); CLARITY,URINE CLEAR (CLEAR); COLOR,URINE YELLOW (YELLOW); KETONES,URINE NEGATIVE (NEGATIVE); LEUKOCYTE ESTERASE ,URINE NEGATIVE (NEGATIVE); NITRITE,URINE NEGATIVE (NEGATIVE); PROTEIN,URINE DIPSTICK TRACE (NEGATIVE); URINE UROBILINOGEN 1 mg/dL (0.2 - 1)
[2020-04-17 14:09] LABS: RBC,URINE 0-5 /HPF (0-5); WBC,URINE (MAN) 0-5 /HPF (0-5)
[2020-04-17] MEDS ORDERED: HYDROMORPHONE 1MG/1ML INJ IV STA (14:39)
== END 2020-04-17 15:44 | disposition home or self-care (01) ==
LOC: ER 10:45
DX: N20.0 Calculus of kidney (principal); R10.32 Left lower quadrant pain; R11.2 Nausea with vomiting, unspecified
CPT/HCPCS: 36415; 71045; 74177; 80053; 81001; 82150; 82550; 82553; 83690; 83735; 84484; 85025; 85610; 85730; 87086; 93005; 99284; C9113; J1170; J1885; J2270; J2405; J7030; Q9967